=== PATIENT | female | born 1990 | race Two or more races ===

== ENCOUNTER 2017-01-19 00:22 | Inpatient (IN) | payer OTHER ==
[2017-01-19] VITALS: BP 113/56; PULSE 52; RESP 16; TEMP 97.3; O2SAT 98
[~2017-01-19] VITALS: Ht 165.1 cm; Wt 103.2 kg
[~2017-01-19 00:22] MED LIST: NALOXONE HCL 0.4 MG/ML AMP IV PUSH PRN; ONDANSETRON HCL 4 MG/2 ML VIAL IVP PRN; SODIUM CHLORIDE 0.9% FLUSH 10 ML FLUSH IV FLUSH PRN
[2017-01-19] MEDS: SODIUM CHLOR 0.9% 1000 ML INJ 1,000 ML IV SCH ×3 (00:55→18:14)
[2017-01-19] MEDS: MORPHINE SULFATE 2 MG/ML INJ IV PUSH PRN ×2 (01:15→07:25)
--- NOTE | 2017-01-19 02:14 | HHI.HP ---
[facility] Mukul Kyle D.O. Admission Diagnosis Diagnoses: Travel History International Travel<30 Days: No Contact w/Intl Traveler <30 Da: No Traveled to Known Affected Are: No History of Present Illness 27-year-old female presents to the emergency department with a 2 day history of severe epigastric abdominal pain that radiates to her shoulder and nausea/ vomiting. The patient reports she was in her usual state of health when 2 days ago she started to have right upper quadrant pain that was worse with inspiration. She reports the pain intensified to the point where she felt it necessary to be evaluated in the ED. The patient is also concerned because she has not been able to keep anything down. She reports throwing up everything that she takes nothing by mouth. She denies fever/chills. Patient's lab work was significant for transaminitis with elevated alkaline phosphatase and a total bilirubin of 2.8. She does not have leukocytosis. CT of the abdomen/ pelvis showed no acute disease. Review of Systems Denies fever or chills Denies blurry vision, otorrhea, rhinorrhea Denies sore throat and cough No chest pain, palpitations, shortness of breath Positive abdominal pain Positive nausea/vomiting Denies muscle pain/weakness No rashes Past Family Social History Past Medical History None Past Surgical History 5 weeks ago complicated by incisional infection, now resolved Reported Medications None Allergies: Coded Allergies: No Known Allergies (Verified Allergy, Unknown, 01/18/17) Family History Father with CAD. Mother healthy. Social History Occasional marijuana. Denies alcohol or other illicit drugs. Never smoker. Physical Exam Vital Signs Vital Signs Date Time Temp Pulse Resp B/P (MAP) Pulse Ox O2 Delivery O2 Flow Rate FiO2 01/19/17 00:00 97.3 52 16 113/56 (75) 98 Physical Exam GENERAL: female sitting up in bed SKIN: No rashes, ecchymoses or lesions. Cool and dry. HEAD: Atraumatic. Normocephalic. No temporal or scalp tenderness. EYES: Pupils equal round and reactive. Extraocular motions intact. No scleral icterus. No injection or drainage. ENT: Nose without bleeding, purulent drainage or septal hematoma. Throat without erythema, tonsillar hypertrophy or exudate. Uvula midline. Airway patent. NECK: Trachea midline. No JVD or lymphadenopathy. Supple, nontender, no meningeal signs. CARDIOVASCULAR: Regular rate and rhythm without murmurs, gallops, or rubs. RESPIRATORY: Clear to auscultation. Breath sounds equal bilaterally. No wheezes , rales, or rhonchi. GASTROINTESTINAL: Abdomen soft and nondistended. Exquisitely tender to palpation worse in the right upper quadrant. Unable to assess López sign secondary to pain. Pain referred to right shoulder. MUSCULOSKELETAL: Extremities without clubbing, cyanosis, or edema. No joint tenderness, effusion, or edema noted. NEUROLOGICAL: Awake and alert. Cranial nerves II through XII intact. Motor and sensory grossly within normal limits. Normal speech. Caprini VTE Risk Assessment Caprini VTE Risk Assessment: No/Low Risk (score <= 1) Caprini Risk Assessment Model Point Value = 1 Point Value = 2 Point Value = 3 Point Value = 5 Age 41-60 Minor surgery BMI > 25 kg/m2 Swollen legs Varicose veins or History of unexplained or recurrent spontaneous Oral contraceptives or hormone replacement Sepsis (< 1 month) Serious lung disease, including pneumonia (< 1 month) Abnormal pulmonary function Acute myocardial infarction Congestive heart failure (< 1 month) History of inflammatory bowel disease Medical patient at bed rest Age 61-74 Arthroscopic surgery Major open surgery (> 45 min) Laparoscopic surgery (> 45 min) Malignancy Confined to bed (> 72 hours) Immobilizing plaster cast Central venous access Age >= 75 History of VTE Family history of VTE Factor V Leiden Prothrombin [id number] Lupus anticoagulant Anticardiolipin antibodies Elevated serum homocysteine Heparin-induced thrombocytopenia Other congenital or acquired thrombophilia Stroke (< 1 month) Elective arthroplasty Hip, pelvis, or leg fracture Acute spinal cord injury (< 1 month) Prophylaxis Regimen Total Risk Factor Score Risk Level Prophylaxis Regimen 0-1 Low Early ambulation 2 Moderate Order ONE of the following: *Sequential Compression Device (SCD) *Heparin 5000 units SQ BID 3-4 Higher Order ONE of the following medications: *Heparin 5000 units SQ TID *Enoxaparin/Lovenox 40 mg SQ daily (WT < 150 kg, CrCl > 30 mL/min) *Enoxaparin/Lovenox 30 mg SQ daily (WT < 150 kg, CrCl > 10-29 mL/min) *Enoxaparin/Lovenox 30 mg SQ BID (WT < 150 kg, CrCl > 30 mL/min) AND/OR *Sequential Compression Device (SCD) 5 or more Highest Order ONE of the following medications: *Heparin 5000 units SQ TID (Preferred with Epidurals) *Enoxaparin/Lovenox 40 mg SQ daily (WT < 150 kg, CrCl > 30 mL/min) *Enoxaparin/Lovenox 30 mg SQ daily (WT < 150 kg, CrCl > 10-29 mL/min) *Enoxaparin/Lovenox 30 mg SQ BID (WT < 150 kg, CrCl > 30 mL/min) AND *Sequential Compression Device (SCD) Assessment and Plan Assessment and Plan 27-year-old female presents with 2 days of nausea/vomiting and abdominal pain with transaminitis and elevated total bilirubin. 1. Abdominal pain/transaminitis/elevated T bili/nausea and vomiting Given patient's lab values and right upper quadrant pain, concern for choledocholithiasis although no dilated ducts on CT abdomen/pelvis Ultrasound of the gallbladder pending Consult gastroenterology Nothing by mouth FEN NS at 100 cc/hour NPO Electrolytes within normal limits SCDs Physician Certification 2 Midnight Certification Type: Admission for Inpatient Services Order for Inpatient Services The services are ordered in accordance with Medicare regulations or non- Medicare payer requirements, as applicable. In the case of services not specified as inpatient-only, they are appropriately provided as inpatient services in accordance with the 2-midnight benchmark. Estimated LOS (days): 2 2 days is the estimated time the patient will need to remain in the hospital, assuming treatment plan goals are met and no additional complications. Post-Hospital Plan: Home Lety James MD Jan 19, 2017 02:14
[2017-01-19] MEDS ORDERED: PIPERACIL-TAZO 3.375 GM PREMIX 50 ML IV SCH (03:00)
[2017-01-19 08:00] VITALS: BP 114/66; PULSE 52; RESP 16; TEMP 97.6; O2SAT 97
[2017-01-19] MEDS ORDERED: BISACODYL 10 MG SUPP RECTAL PRN ×2 (08:45→11:45)
[2017-01-19] MEDS ORDERED: MORPHINE SULFATE 4 MG/ML INJ IV PUSH PRN ×2 (08:45)
[2017-01-19] MEDS ORDERED: oxyCODONE/ACETAMINOPHEN 10 MG/325 MG TAB PO PRN (08:45)
[2017-01-19] MEDS ORDERED: PROCHLORPERAZINE 25 MG SUPP RECTAL PRN (08:45)
[2017-01-19] MEDS ORDERED: LACTULOSE SYRUP 20 GM/30 ML CUP PO PRN ×2 (08:45→11:45)
[2017-01-19] MEDS ORDERED: oxyCODONE/ACETAMINOPHEN 5 MG/325 MG TAB PO PRN ×2 (08:45→11:45)
[2017-01-19] MEDS ORDERED: NALOXONE HCL 0.4 MG/ML AMP IV PUSH PRN ×2 (08:45→11:45)
[2017-01-19] MEDS ORDERED: MAGNESIUM HYDROXIDE SUSP 30 ML CUP PO PRN ×2 (08:45→11:45)
[2017-01-19] MEDS ORDERED: ACETAMINOPHEN 325 MG TAB PO PRN ×4 (08:45→11:45)
[2017-01-19] MEDS ORDERED: SENNOSIDES 8.6 MG TAB PO PRN ×2 (08:45→11:45)
[2017-01-19] MEDS ORDERED: SODIUM CHLORIDE 0.9% FLUSH 10 ML FLUSH IV FLUSH PRN ×2 (08:45→11:45)
[2017-01-19] MEDS ORDERED: DOCUSATE SODIUM 50 MG/SENNA 8.6 MG TAB PO SCH (09:00)
[2017-01-19] MEDS ORDERED: SODIUM CHLORIDE 0.9% FLUSH 10 ML FLUSH IV FLUSH SCH ×2 (09:00)
--- NOTE | 2017-01-19 10:21 | RADRPT ---
EXAM DATE/TIME: 01/19/2017 09:08 [facility] COMPARISON: CT ABDOMEN & PELVIS W/O CONTRAST, January 18, 2017, 20:41. INDICATIONS : Abdominal pain. MEDICAL HISTORY : Cholelithiasis. UTI. SURGICAL HISTORY : section. ENCOUNTER: Initial ACUITY: 1 day PAIN SCORE: 4/10 LOCATION: Abdomen. MEASUREMENTS: LIVER: 16.0 cm length COMMON DUCT: 8 mm RIGHT KIDNEY: 10.5 x 4.2 x 4.6 cm LEFT KIDNEY: 10.4 x 5.6 x 5.4 cm SPLEEN: 10.0 cm length AORTA: 1.3cm maximal FINDINGS: LIVER: Normal echotexture without focal lesion or ductal dilatation. COMMON DUCT: Measures 8 mm without obvious stone. GALLBLADDER: That are non-mobile echogenic focus in the gallbladder that could be stone. PANCREAS: The visualized portions are within normal limits. RIGHT KIDNEY: No hydronephrosis, stone or mass. LEFT KIDNEY: No hydronephrosis, stone or mass. SPLEEN: No focal lesion. AORTA: Non aneurysmal. IVC: Within normal limits. CONCLUSION: 8 mm common bile duct Probable gallstones. MRCP or HIDA scan may be of benefit. Kolton Marquez MD FACR on January 19, 2017 at 10:17 Board Certified Radiologist. This report was verified electronically.
[2017-01-19] MEDS: PIPERACIL-TAZO 4.5 GM PREMIX 100 ML IV SCH ×3 (11:21→21:20)
--- NOTE | 2017-01-19 11:36 | HHI.PR ---
Subjective Remarks 27-year-old female presents to the emergency department with a 2 day history of severe epigastric abdominal pain that radiates to her shoulder and nausea/ vomiting. The patient reports she was in her usual state of health when 2 days ago she started to have right upper quadrant pain that was worse with inspiration. She reports the pain intensified to the point where she felt it necessary to be evaluated in the ED. The patient is also concerned because she has not been able to keep anything down. She reports throwing up everything that she takes nothing by mouth. She denies fever/chills. Patient's lab work was significant for transaminitis with elevated alkaline phosphatase and a total bilirubin of 2.8. She does not have leukocytosis. CT of the abdomen/ pelvis showed no acute disease. 01-19 SEEN BY GI MRCP ORDERED DW PATIENT AND RN AND FAMILY RECENT WITH LOCAL WOUND INFECTION Objective Vitals Vital Signs Date Time Temp Pulse Resp B/P (MAP) Pulse Ox O2 Delivery O2 Flow Rate FiO2 01/19/17 08:00 97.6 52 16 114/66 (82) 97 01/19/17 00:00 97.3 52 16 113/56 (75) 98 I/O 01/18/17 01/18/17 01/18/17 01/19/17 01/19/17 01/19/17 07:00 15:00 23:00 07:00 15:00 23:00 Intake Total 1000 ml Balance 1000 ml Intake IV Total 1000 ml # Voids 1 Imaging Last Impressions Abdomen Ultrasound 01/19/17 0000 Signed Impressions: Service Date/Time: Thursday, January 19, 2017 09:08 - CONCLUSION: 8 mm common bile duct Probable gallstones. MRCP or HIDA scan may be of benefit. Kolton Marquez MD FACR Objective Remarks GENERAL: Awake alert oriented talkative and cooperative SKIN: Warm and dry. HEAD: Atraumatic. Normocephalic. EYES: Pupils equal and round. No scleral icterus. No injection or drainage. Extraocular muscles intact ENT: No nasal bleeding or discharge. Mucous membranes pink and moist. Tongue is midline NECK: Trachea midline. No JVD. Neck is supple CARDIOVASCULAR: Regular rate and rhythm. S1 and S2 no S3 or S4 no heave or thrill or rub or gallop RESPIRATORY: No accessory muscle use. Clear to auscultation. Breath sounds equal bilaterally. GASTROINTESTINAL: Abdomen soft, non-tender, nondistended. Hepatic and splenic margins not palpable. Obese MUSCULOSKELETAL: Extremities without clubbing, cyanosis, or edema. No obvious deformities. NEUROLOGICAL: Awake and alert. No obvious cranial nerve deficits. Motor grossly within normal limits. Five out of 5 muscle strength in the arms and legs. Normal speech. PSYCHIATRIC: Appropriate mood and affect; insight and judgment normal. Medications and IVs Current Medications Sodium Chloride 1,000 ml @ 100 mls/hr Q10H IV Last administered on 01/19/17 08:33; Start 01/18/17 at 22:14 Sodium Chloride (NS Flush) 2 ml UNSCH PRN IV FLUSH FLUSH AFTER USING IV ACCESS ; Start 01/18/17 at 22:15 Sodium Chloride (NS Flush) 2 ml BID IV FLUSH ; Start 01/19/17 at 09:00 Ondansetron HCl (Zofran Inj) 4 mg Q6H PRN IVP NAUSEA OR VOMITING; Start at 22:15 Naloxone HCl (Narcan Inj) 0.4 mg UNSCH PRN IV PUSH SEE LABEL COMMENTS; Start 01/18/17 at 22:15; Stop 01/19/17 at 08:41; Status DC Piperacillin Sod/ Tazobactam Sod 50 ml @ 100 mls/hr Q6H IV ; Start 01/19/17 at 03:00; Stop 01/19/17 at 03:00; Status DC Morphine Sulfate (Morphine Inj) 2 mg Q3H PRN IV PUSH pain > 4 Last administered on 01/19/17 07:25; Start 01/19/17 at 00:45; Stop 01/19/17 at 08:41 ; Status DC Piperacillin Sod/ Tazobactam Sod 100 ml @ 200 mls/hr Q6H IV Last administered on 01/19/17 11:21; Start 01/19/17 at 10:00 Sodium Chloride (NS Flush) 2 ml UNSCH PRN IV FLUSH FLUSH AFTER USING IV ACCESS ; Start 01/19/17 at 08:45; Stop 01/19/17 at 08:45; Status DC Sodium Chloride (NS Flush) 2 ml BID IV FLUSH ; Start 01/19/17 at 09:00; Stop at 09:00; Status DC Acetaminophen (Tylenol) 650 mg Q4H PRN PO TEMP > 100.4; Start 01/19/17 at 08:45 Prochlorperazine (Compazine Supp) 25 mg Q12H PRN RECTAL NAUSEA OR VOMITING; Start 01/19/17 at 08:45 Acetaminophen (Tylenol) 650 mg Q6H PRN PO PAIN SCALE 1 TO 2; Start 01/19/17 at 08:45 Oxycodone/ Acetaminophen (Percocet 5-325 Mg) 1 tab Q6H PRN PO PAIN SCALE 3 TO 5; Start 01/19/17 at 08:45 Oxycodone/ Acetaminophen (Percocet 10-325 Mg) 1 tab Q6H PRN PO PAIN SCALE 6 TO 10; Start 01/19/17 at 08:45 Morphine Sulfate (Morphine Inj) 2 mg Q3H PRN IV PUSH Pain 3-5; if unable to take PO; Start 01/19/17 at 08:45 Morphine Sulfate (Morphine Inj) 4 mg Q3H PRN IV PUSH Pain 6-10;if unable to take PO Last administered on 01/19/17t 10:52; Start 01/19/17 at 08:45 Naloxone HCl (Narcan Inj) 0.4 mg UNSCH PRN IV PUSH SEE LABEL COMMENTS; Start 01/19/17 at 08:45 Senna/Docusate Sodium (Vandana-Colace) 1 tab BID PO Last administered on 10:51; Start 01/19/17 at 09:00 Magnesium Hydroxide (Milk Of Magnesia Liq) 30 ml Q12H PRN PO Mild constipation ; Start 01/19/17 at 08:45 Sennosides (Senokot) 17.2 mg Q12H PRN PO Moderate constipation; Start 01/19/17 at 08:45 Bisacodyl (Dulcolax Supp) 10 mg DAILY PRN RECTAL SEVERE CONSITIPATION; Start 01/19/17 at 08:45 Lactulose (Lactulose Liq) 30 ml DAILY PRN PO SEVERE CONSITIPATION; Start at 08:45 Urinary Catheter: No Vascular Central Line Catheter: No A/P Assessment and Plan 27-year-old female presents with 2 days of nausea/vomiting and abdominal pain with transaminitis and elevated total bilirubin. 1. Abdominal pain/transaminitis/elevated T bili/nausea and vomiting Given patient's lab values and right upper quadrant pain, concern for choledocholithiasis although no dilated ducts on CT abdomen/pelvis Ultrasound of the gallbladder pending Consult gastroenterology Nothing by mouth FEN NS at 100 cc/hour NPO Electrolytes within normal limits SCDs Recent section 6 weeks ago with local wound infection resolved DW GI WILL GET MRCP TODAY MAY NEED ERCP A.m. labs Discussed with patient and RN and GI Discharge Planning Pending MRCP results and GI clearance Kolton Clemens DO Jan 19, 2017 11:36
[2017-01-19] MEDS ORDERED: MORPHINE SULFATE 2 MG/ML INJ IV PUSH PRN (11:45)
[2017-01-19 12:00] VITALS: BP 122/79; PULSE 48; RESP 18; TEMP 98; O2SAT 97
[2017-01-19 13:34] LABS: AUTOMATED NEUTROPHIL # 3.9 TH/MM3 (1.8-7.7); BASOPHIL % 0.2 % (0.0-2.0); EOSINOPHIL # 0.1 TH/MM3 (0-0.4); EOSINOPHIL % 1.2 % (0.0-4.0); HEMATOCRIT 35.9 % (35.0-46.0); HEMO FLAGS DIFF FINAL; LYMPH % 29.8 % (9.0-44.0); LYMPHOCYTE # 1.9 TH/MM3 (1.0-4.8); MEAN CORPUSCULAR HGB CONC 32.5 % (32.0-36.0); MONO % 8.2 % (0.0-8.0); NEUT % 60.6 % (16.0-70.0); PLATELET COUNT 271 TH/MM3 (150-450); RED BLOOD COUNT 4.33 MIL/MM3 (4.00-5.30); RED CELL DISTRIBUTION WIDTH 16.4 % (11.6-17.2); WHITE BLOOD COUNT 6.5 TH/MM3 (4.0-11.0)
[2017-01-19 13:54] LABS: MAGNESIUM 2.1 MG/DL (1.5-2.5)
[2017-01-19 13:56] LABS: ANION GAP 10 MEQ/L (5-15); AST (GOT) 158 U/L (15-37); BICARBONATE 23.9 MEQ/L (21.0-32.0); BLOOD UREA NITROGEN 9 MG/DL (7-18); CHLORIDE 107 MEQ/L (98-107); GLOMERULAR FILTRATION RATE 84 ML/MIN (>89); POTASSIUM 3.7 MEQ/L (3.5-5.1); SODIUM (NA) 141 MEQ/L (136-145)
[2017-01-19 14:00] LABS: ALKALINE PHOSPHATASE 258 U/L (45-117); ALT (GPT) 281 U/L (10-53); TOTAL BILIRUBIN ADULT 3.4 MG/DL (0.2-1.0)
[2017-01-19 14:03] LABS: FREE T4 1.21 NG/DL (0.76-1.46)
[2017-01-19 14:31] LABS: HEMOGLOBIN A1a 1.6 %; HEMOGLOBIN A1b 0.8 %; HEMOGLOBIN Ao 86.2 %; HEMOGLOBIN LA1C 1.6 %; HEMOGLOBIN P3 3.1 %
[2017-01-19] MEDS: MORPHINE SULFATE 4 MG/ML INJ IV PUSH PRN ×3 (14:48→21:26)
[2017-01-19] MEDS: ONDANSETRON HCL 4 MG/2 ML VIAL IVP PRN ×2 (15:18→21:19)
--- NOTE | 2017-01-19 15:18 | RADRPT ---
EXAM DATE/TIME: 01/19/2017 13:37 [facility] COMPARISON: No previous studies available for comparison. INDICATIONS : Abdominal pain. MEDICAL HISTORY : None. SURGICAL HISTORY : section. ENCOUNTER: Initial ACUITY: 3 day PAIN SCORE: 4/10 LOCATION: Abdomen TECHNIQUE: Multiplanar, multisequence magnetic resonance imaging of the abdomen was performed. High-resolution 3D dataset was utilized to reconstruct maximum-intensity projection (MIP) images. FINDINGS: There are 3 tiny stones in the benign appearing gallbladder. The common duct appears normal on the M [employer]. Pancreatic duct is normal. The liver and spleen are unremarkable. The pancreas appears unremarkable. CONCLUSION: Tiny stones in the benign appearing gallbladder. Normal common duct. Given the size of the stones w e could be missing a tiny common duct stone on this exam. Kolton Marquez MD FACR on January 19, 2017 at 15:14 Board Certified Radiologist. This report was verified electronically.
[2017-01-19 16:00] VITALS: BP 118/76; PULSE 46; RESP 16; TEMP 98; O2SAT 97
--- NOTE | 2017-01-19 16:16 | PD.CONS ---
HPI History of Present Illness This is a 27 year old who recently delivered by 6 weeks ago. She has lost 28 lbs since that time. She is not and there is no chance of . For the past 4-5 weeks, she has been having a constant sharp discomfort in her right shoulder blade area. 2 days ago, this became more severe and radiated to her right upper quadrant. The pain was more intense in her right upper quadrant. Since this time, every time she tries to eat or drink anything, she will vomit undigested food. She denies any associated fevers, chills. She is not having any diarrhea. She denies any relation to any particular type of food and states that the nausea/vomiting only began in the past 2 days. Around the same time, she started having dark urine. US (01/19/17) ---> 8 mm common bile duct. Probable gallstones. MRCP or HIDA scan may be of benefit. MRCP (01/19/17)---> Tiny stones in the benign appearing gallbladder. Normal common duct. Given the size of the stones, we could be missing a tiny common duct stone on this exam. Clinically, she reports that she is still having the same right upper quadrant pain. (Nilam Diego) PFSH Past Medical History None Past Surgical History (Nilam Diego) Coded Allergies: No Known Allergies (Verified Allergy, Unknown, 01/18/17) Medications Allergies Coded Allergies Type Severity Reaction Last Updated Verified No Known Allergies Allergy Unknown 01/18/17 Yes Family History Father with CAD. Mother healthy. Social History Occasional marijuana. Denies alcohol or other illicit drugs. Never smoker. (Nilam Diego) Review of Systems Constitutional: COMPLAINS OF: Fatigue, Weight loss, DENIES: Fever, Chills Gastrointestinal: COMPLAINS OF: Abdominal pain, Nausea, Vomiting, DENIES: Diarrhea Musculoskeletal: COMPLAINS OF: Back pain ROS dark urine (Nilam Diego) GI Exam Vitals I&O Vital Signs Date Time Temp Pulse Resp B/P (MAP) Pulse Ox O2 Delivery O2 Flow Rate FiO2 01/19/17 12:00 98.0 48 18 122/79 (93) 97 01/19/17 08:00 97.6 52 16 114/66 (82) 97 01/19/17 00:00 97.3 52 16 113/56 (75) 98 I/O 01/18/17 01/18/17 01/18/17 01/19/17 01/19/17 01/19/17 07:00 15:00 23:00 07:00 15:00 23:00 Intake Total 1000 ml Balance 1000 ml Intake IV Total 1000 ml # Voids 1 Imaging Last Impressions Cholangiopancreatography MRI 01/19/17 0000 Signed Impressions: Service Date/Time: Thursday, January 19, 2017 13:37 - CONCLUSION: Tiny stones in the benign appearing gallbladder. Normal common duct. Given the size of the stones we could be missing a tiny common duct stone on this exam. Kolton Marquez MD FACR Abdomen Ultrasound 01/19/17 0000 Signed Impressions: Service Date/Time: Thursday, January 19, 2017 09:08 - CONCLUSION: 8 mm common bile duct Probable gallstones. MRCP or HIDA scan may be of benefit. Kolton Marquez MD FACR Laboratory Test 01/19/17 12:51 01/19/17 12:57 White Blood Count 6.5 TH/MM3 Red Blood Count 4.33 MIL/MM3 Hemoglobin 11.7 GM/DL Hematocrit 35.9 % Mean Corpuscular Volume 83.0 FL Mean Corpuscular Hemoglobin 27.0 PG Mean Corpuscular Hemoglobin Concent 32.5 % Red Cell Distribution Width 16.4 % Platelet Count 271 TH/MM3 Mean Platelet Volume 7.9 FL Neutrophils (%) (Auto) 60.6 % Lymphocytes (%) (Auto) 29.8 % Monocytes (%) (Auto) 8.2 % Eosinophils (%) (Auto) 1.2 % Basophils (%) (Auto) 0.2 % Neutrophils # (Auto) 3.9 TH/MM3 Lymphocytes # (Auto) 1.9 TH/MM3 Monocytes # (Auto) 0.5 TH/MM3 Eosinophils # (Auto) 0.1 TH/MM3 Basophils # (Auto) 0.0 TH/MM3 CBC Comment DIFF FINAL Differential Comment Blood Urea Nitrogen 9 MG/DL Creatinine 0.82 MG/DL Random Glucose 64 MG/DL Total Protein 6.7 GM/DL Albumin 2.8 GM/DL Calcium Level 8.4 MG/DL Alkaline Phosphatase 258 U/L Aspartate Amino Transf (AST/SGOT) 158 U/L Alanine Aminotransferase (ALT/SGPT) 281 U/L Total Bilirubin 3.4 MG/DL Sodium Level 141 MEQ/L Potassium Level 3.7 MEQ/L Chloride Level 107 MEQ/L Carbon Dioxide Level 23.9 MEQ/L Anion Gap 10 MEQ/L Estimat Glomerular Filtration Rate 84 ML/MIN Hemoglobin A1c 5.3 % Phosphorus Level 2.9 MG/DL Magnesium Level 2.1 MG/DL Free Thyroxine 1.21 NG/DL Thyroid Stimulating Hormone 3rd Gen 1.130 uIU/ML Physical Examination HEENT: Normocephalic; atraumatic; no jaundice. CHEST: CTA CARDIAC: RRR ABDOMEN: Soft, nondistended, RUQ tenderness; no hepatosplenomegaly; bowel sounds are present in all four quadrants. EXTREMITIES: No clubbing, cyanosis, or edema. SKIN: Normal; no rash; no jaundice. [employer]: No focal deficits; alert and oriented times three. (Nilam Diego) Assessment and Plan Plan ASSESSMENT: - RUQ pain, cholelithiasis, elevated lfts. US (01/19/17)---> 8 mm common bile duct. Probable gallstones. MRCP or HIDA scan may be of benefit. MRCP (01/19/17)---> Tiny stones in the benign appearing gallbladder. Normal common duct. Given the size of the stones, we could be missing a tiny common duct stone on this exam. Clinically, she reports that she is still having the same right upper quadrant pain. T. Bili 3.4, AST 158, ALT 281, Alk Phosph 258. Clinically, still having abdominal pain. Will keep NPO. Recheck LFTs in am. If no improvement, may still need ERCP. Check lipase. - Elevated LFTs, obstructive pattern. MRCP as above. Will recheck in am. PLAN: - NPO - IVF - Add PPI - Lipase level - CBC, LFT in am - Supportive care - Further recommendations to follow based on results of above - PT seen and examined by Dr. Hooks and myself and this note is written on his behalf (Nilam Diego) Physician Comments Seen and examined, plan as above. Normal CBD diameter in MRCP and non of the studies confirming CBD stones, will follow up clinically . Daily LFT's and Amylase/Lipase Further recommendations to follow. (Eloy Hooks MD) Nilam Diego Jan 19, 2017 16:16 Eloy Hooks MD Jan 19, 2017 16:36
[2017-01-19] MEDS: PANTOPRAZOLE SODIUM 40 MG VIAL IV PUSH SCH (16:48)
[2017-01-19] MEDS: PROCHLORPERAZINE 25 MG SUPP RECTAL PRN (19:23)
[2017-01-19] MEDS: SODIUM CHLORIDE 0.9% FLUSH 10 ML FLUSH IV FLUSH SCH (19:27)
[2017-01-19 20:00] VITALS: BP 129/64; PULSE 49; RESP 20; TEMP 97.5; O2SAT 98
[2017-01-19] MEDS: DOCUSATE SODIUM 50 MG/SENNA 8.6 MG TAB PO SCH (21:00)
[2017-01-20] VITALS: BP 132/82; PULSE 52; RESP 18; TEMP 97.9; O2SAT 97
[2017-01-20] MEDS: SODIUM CHLOR 0.9% 1000 ML INJ 1,000 ML IV SCH (04:14)
[2017-01-20] MEDS: ONDANSETRON HCL 4 MG/2 ML VIAL IVP PRN (04:38)
[2017-01-20] MEDS: PIPERACIL-TAZO 4.5 GM PREMIX 100 ML IV SCH ×4 (04:38→21:38)
[2017-01-20] MEDS: MORPHINE SULFATE 4 MG/ML INJ IV PUSH PRN (04:38)
[2017-01-20 08:00] VITALS: BP 116/65; PULSE 64; RESP 16; TEMP 97; O2SAT 97
[2017-01-20 08:59] LABS: BASOPHIL % 0.2 % (0.0-2.0); EOSINOPHIL # 0.1 TH/MM3 (0-0.4); EOSINOPHIL % 1.3 % (0.0-4.0); HEMO FLAGS DIFF FINAL; LYMPH % 25.3 % (9.0-44.0); LYMPHOCYTE # 1.9 TH/MM3 (1.0-4.8); MEAN CELL VOLUME 83.2 FL (80.0-100.0); MEAN CORPUSCULAR HEMOGLOBIN 26.6 PG (27.0-34.0); MONO % 5.9 % (0.0-8.0); NEUT % 67.3 % (16.0-70.0); PLATELET COUNT 260 TH/MM3 (150-450); RED BLOOD COUNT 4.45 MIL/MM3 (4.00-5.30); RED CELL DISTRIBUTION WIDTH 16.7 % (11.6-17.2); WHITE BLOOD COUNT 7.5 TH/MM3 (4.0-11.0)
[2017-01-20] MEDS: SODIUM CHLORIDE 0.9% FLUSH 10 ML FLUSH IV FLUSH SCH ×2 (09:00→20:01)
[2017-01-20] MEDS: DOCUSATE SODIUM 50 MG/SENNA 8.6 MG TAB PO SCH ×2 (09:25→20:00)
[2017-01-20 09:27] LABS: AMYLASE 98 U/L (25-115); ANION GAP 11 MEQ/L (5-15); AST (GOT) 63 U/L (15-37); BICARBONATE 22.7 MEQ/L (21.0-32.0); BLOOD UREA NITROGEN 12 MG/DL (7-18); CHLORIDE 108 MEQ/L (98-107); GLOMERULAR FILTRATION RATE 80 ML/MIN (>89); POTASSIUM 4.1 MEQ/L (3.5-5.1); SODIUM (NA) 142 MEQ/L (136-145)
[2017-01-20 09:28] LABS: ALT (GPT) 208 U/L (10-53)
[2017-01-20 09:31] LABS: ALKALINE PHOSPHATASE 254 U/L (45-117); FREE T4 1.28 NG/DL (0.76-1.46); TOTAL BILIRUBIN ADULT 3.7 MG/DL (0.2-1.0)
[2017-01-20] MEDS: D5-1/2 NS + KCL 20 MEQ INJ 1,000 ML IV SCH (10:08)
[2017-01-20 12:00] VITALS: BP 108/57; PULSE 45; RESP 16; TEMP 97.6; O2SAT 98
--- NOTE | 2017-01-20 12:25 | HHI.PR ---
Subjective Remarks 27-year-old female presents to the emergency department with a 2 day history of severe epigastric abdominal pain that radiates to her shoulder and nausea/ vomiting. The patient reports she was in her usual state of health when 2 days ago she started to have right upper quadrant pain that was worse with inspiration. She reports the pain intensified to the point where she felt it necessary to be evaluated in the ED. The patient is also concerned because she has not been able to keep anything down. She reports throwing up everything that she takes nothing by mouth. She denies fever/chills. Patient's lab work was significant for transaminitis with elevated alkaline phosphatase and a total bilirubin of 2.8. She does not have leukocytosis. CT of the abdomen/ pelvis showed no acute disease. 01-19 SEEN BY GI MRCP ORDERED DW PATIENT AND RN AND FAMILY RECENT WITH LOCAL WOUND INFECTION 01-20 STILL HAVING ABDOMINAL PAIN LFTS ARE TRENDING DOWN DW RN AND PT AND CM AM LABS CLEAR LIQUIDS IF OK WITH GI Objective Vitals Vital Signs Date Time Temp Pulse Resp B/P (MAP) Pulse Ox O2 Delivery O2 Flow Rate FiO2 01/20/17 12:00 97.6 45 16 108/57 (74) 98 01/20/17 08:00 97.0 64 16 116/65 (82) 97 01/20/17 04:43 20 01/20/17 00:00 97.9 52 18 132/82 (99) 97 01/19/17 20:00 97.5 49 20 129/64 (85) 98 01/19/17 16:00 98.0 46 16 118/76 (90) 97 I/O 01/19/17 01/19/17 01/19/17 01/20/17 01/20/17 01/20/17 07:00 15:00 23:00 07:00 15:00 23:00 Intake Total 1000 ml 100 ml 0 ml 487 ml Balance 1000 ml 100 ml 0 ml 487 ml Intake Oral 0 ml 0 ml IV Total 1000 ml 100 ml 487 ml # Voids 1 4 2 # Bowel Movements 0 0 Result Diagram: 01/20/17 0808 01/20/17 0808 Other Results Laboratory Tests Test 01/19/17 12:51 01/19/17 12:57 01/20/17 08:08 White Blood Count 6.5 TH/MM3 7.5 TH/MM3 Red Blood Count 4.33 MIL/MM3 4.45 MIL/MM3 Hemoglobin 11.7 GM/DL 11.8 GM/DL Hematocrit 35.9 % 37.0 % Mean Corpuscular Volume 83.0 FL 83.2 FL Mean Corpuscular Hemoglobin 27.0 PG 26.6 PG Mean Corpuscular Hemoglobin Concent 32.5 % 32.0 % Red Cell Distribution Width 16.4 % 16.7 % Platelet Count 271 TH/MM3 260 TH/MM3 Mean Platelet Volume 7.9 FL 8.0 FL Neutrophils (%) (Auto) 60.6 % 67.3 % Lymphocytes (%) (Auto) 29.8 % 25.3 % Monocytes (%) (Auto) 8.2 % 5.9 % Eosinophils (%) (Auto) 1.2 % 1.3 % Basophils (%) (Auto) 0.2 % 0.2 % Neutrophils # (Auto) 3.9 TH/MM3 5.0 TH/MM3 Lymphocytes # (Auto) 1.9 TH/MM3 1.9 TH/MM3 Monocytes # (Auto) 0.5 TH/MM3 0.4 TH/MM3 Eosinophils # (Auto) 0.1 TH/MM3 0.1 TH/MM3 Basophils # (Auto) 0.0 TH/MM3 0.0 TH/MM3 CBC Comment DIFF FINAL DIFF FINAL Differential Comment Blood Urea Nitrogen 9 MG/DL 12 MG/DL Creatinine 0.82 MG/DL 0.86 MG/DL Random Glucose 64 MG/DL 54 MG/DL Total Protein 6.7 GM/DL 6.7 GM/DL Albumin 2.8 GM/DL 2.8 GM/DL Calcium Level 8.4 MG/DL 8.5 MG/DL Alkaline Phosphatase 258 U/L 254 U/L Aspartate Amino Transf (AST/SGOT) 158 U/L 63 U/L Alanine Aminotransferase (ALT/SGPT) 281 U/L 208 U/L Total Bilirubin 3.4 MG/DL 3.7 MG/DL Sodium Level 141 MEQ/L 142 MEQ/L Potassium Level 3.7 MEQ/L 4.1 MEQ/L Chloride Level 107 MEQ/L 108 MEQ/L Carbon Dioxide Level 23.9 MEQ/L 22.7 MEQ/L Anion Gap 10 MEQ/L 11 MEQ/L Estimat Glomerular Filtration Rate 84 ML/MIN 80 ML/MIN Hemoglobin A1c 5.3 % Phosphorus Level 2.9 MG/DL 3.3 MG/DL Magnesium Level 2.1 MG/DL 2.0 MG/DL Lipase 215 U/L 405 U/L Free Thyroxine 1.21 NG/DL 1.28 NG/DL Thyroid Stimulating Hormone 3rd Gen 1.130 uIU/ML Amylase Level 98 U/L Imaging Last Impressions Cholangiopancreatography MRI 01/19/17 0000 Signed Impressions: Service Date/Time: Thursday, January 19, 2017 13:37 - CONCLUSION: Tiny stones in the benign appearing gallbladder. Normal common duct. Given the size of the stones we could be missing a tiny common duct stone on this exam. Kolton Marquez MD FACR Abdomen Ultrasound 01/19/17 0000 Signed Impressions: Service Date/Time: Thursday, January 19, 2017 09:08 - CONCLUSION: 8 mm common bile duct Probable gallstones. MRCP or HIDA scan may be of benefit. Kolton Marquez MD FACR Objective Remarks GENERAL: Awake alert oriented talkative and cooperative SKIN: Warm and dry. HEAD: Atraumatic. Normocephalic. EYES: Pupils equal and round. No scleral icterus. No injection or drainage. Extraocular muscles intact ENT: No nasal bleeding or discharge. Mucous membranes pink and moist. Tongue is midline NECK: Trachea midline. No JVD. Neck is supple CARDIOVASCULAR: Regular rate and rhythm. S1 and S2 no S3 or S4 no heave or thrill or rub or gallop RESPIRATORY: No accessory muscle use. Clear to auscultation. Breath sounds equal bilaterally. GASTROINTESTINAL: Abdomen soft, non-tender, nondistended. Hepatic and splenic margins not palpable. Obese MUSCULOSKELETAL: Extremities without clubbing, cyanosis, or edema. No obvious deformities. NEUROLOGICAL: Awake and alert. No obvious cranial nerve deficits. Motor grossly within normal limits. Five out of 5 muscle strength in the arms and legs. Normal speech. PSYCHIATRIC: Appropriate mood and affect; insight and judgment normal. Medications and IVs Current Medications Sodium Chloride 1,000 ml @ 100 mls/hr Q10H IV Last administered on 01/20/17t 04:14; Start 01/18/17 at 22:14; Stop 01/20/17 at 09:53; Status DC Sodium Chloride (NS Flush) 2 ml UNSCH PRN IV FLUSH FLUSH AFTER USING IV ACCESS ; Start 01/18/17 at 22:15; Stop 01/19/17 at 12:00; Status DC Sodium Chloride (NS Flush) 2 ml BID IV FLUSH ; Start 01/19/17 at 09:00; Stop at 12:00; Status DC Ondansetron HCl (Zofran Inj) 4 mg Q6H PRN IVP NAUSEA OR VOMITING; Start at 22:15; Stop 01/19/17 at 12:00; Status DC Naloxone HCl (Narcan Inj) 0.4 mg UNSCH PRN IV PUSH SEE LABEL COMMENTS; Start 01/18/17 at 22:15; Stop 01/19/17 at 08:41; Status DC Piperacillin Sod/ Tazobactam Sod 50 ml @ 100 mls/hr Q6H IV ; Start 01/19/17 at 03:00; Stop 01/19/17 at 03:00; Status DC Morphine Sulfate (Morphine Inj) 2 mg Q3H PRN IV PUSH pain > 4 Last administered on 01/19/17 07:25; Start 01/19/17 at 00:45; Stop 01/19/17 at 08:41 ; Status DC Piperacillin Sod/ Tazobactam Sod 100 ml @ 200 mls/hr Q6H IV Last administered on 01/20/17t 10:08; Start 01/19/17 at 10:00 Sodium Chloride (NS Flush) 2 ml UNSCH PRN IV FLUSH FLUSH AFTER USING IV ACCESS ; Start 01/19/17 at 08:45; Stop 01/19/17 at 08:45; Status DC Sodium Chloride (NS Flush) 2 ml BID IV FLUSH ; Start 01/19/17 at 09:00; Stop at 09:00; Status DC Acetaminophen (Tylenol) 650 mg Q4H PRN PO TEMP > 100.4; Start 01/19/17 at 08:45 ; Stop 01/19/17 at 12:00; Status DC Prochlorperazine (Compazine Supp) 25 mg Q12H PRN RECTAL NAUSEA OR VOMITING; Start 01/19/17 at 08:45; Stop 01/19/17 at 12:00; Status DC Acetaminophen (Tylenol) 650 mg Q6H PRN PO PAIN SCALE 1 TO 2; Start 01/19/17 at 08:45; Stop 01/19/17 at 12:00; Status DC Oxycodone/ Acetaminophen (Percocet 5-325 Mg) 1 tab Q6H PRN PO PAIN SCALE 3 TO 5; Start 01/19/17 at 08:45; Stop 01/19/17 at 12:00; Status DC Oxycodone/ Acetaminophen (Percocet 10-325 Mg) 1 tab Q6H PRN PO PAIN SCALE 6 TO 10; Start 01/19/17 at 08:45; Stop 01/19/17 at 12:00; Status DC Morphine Sulfate (Morphine Inj) 2 mg Q3H PRN IV PUSH Pain 3-5; if unable to take PO; Start 01/19/17 at 08:45; Stop 01/19/17 at 12:06; Status DC Morphine Sulfate (Morphine Inj) 4 mg Q3H PRN IV PUSH Pain 6-10;if unable to take PO Last administered on 01/19/17 10:52; Start 01/19/17 at 08:45; Stop 01/19/17 at 12:06; Status DC Naloxone HCl (Narcan Inj) 0.4 mg UNSCH PRN IV PUSH SEE LABEL COMMENTS; Start 01/19/17 at 08:45; Stop 01/19/17 at 12:06; Status DC Senna/Docusate Sodium (Vandana-Colace) 1 tab BID PO Last administered on 10:51; Start 01/19/17 at 09:00; Stop 01/19/17 at 12:08; Status DC Magnesium Hydroxide (Milk Of Magnesia Liq) 30 ml Q12H PRN PO Mild constipation ; Start 01/19/17 at 08:45; Stop 01/19/17 at 12:06; Status DC Sennosides (Senokot) 17.2 mg Q12H PRN PO Moderate constipation; Start 01/19/17 at 08:45; Stop 01/19/17 at 12:08; Status DC Bisacodyl (Dulcolax Supp) 10 mg DAILY PRN RECTAL SEVERE CONSITIPATION; Start 01/19/17 at 08:45; Stop 01/19/17 at 12:06; Status DC Lactulose (Lactulose Liq) 30 ml DAILY PRN PO SEVERE CONSITIPATION; Start at 08:45; Stop 01/19/17 at 12:06; Status DC Sodium Chloride (NS Flush) 2 ml UNSCH PRN IV FLUSH FLUSH AFTER USING IV ACCESS ; Start 01/19/17 at 11:45 Sodium Chloride (NS Flush) 2 ml BID IV FLUSH ; Start 01/19/17 at 21:00 Acetaminophen (Tylenol) 650 mg Q4H PRN PO TEMP > 100.4; Start 01/19/17 at 11:45 Ondansetron HCl (Zofran Inj) 4 mg Q6H PRN IVP NAUSEA OR VOMITING Last administered on 01/20/17 04:38; Start 01/19/17 at 11:45 Prochlorperazine (Compazine Supp) 25 mg Q12H PRN RECTAL NAUSEA OR VOMITING Last administered on 01/19/17 19:23; Start 01/19/17 at 11:45 Acetaminophen (Tylenol) 650 mg Q6H PRN PO PAIN SCALE 1 TO 2; Start 01/19/17 at 11:45 Oxycodone/ Acetaminophen (Percocet 5-325 Mg) 1 tab Q6H PRN PO PAIN SCALE 3 TO 5; Start 01/19/17 at 11:45 Oxycodone/ Acetaminophen (Percocet 10-325 Mg) 1 tab Q6H PRN PO PAIN SCALE 6 TO 10; Start 01/19/17 at 11:45 Morphine Sulfate (Morphine Inj) 2 mg Q3H PRN IV PUSH Pain 3-5; if unable to take PO; Start 01/19/17 at 11:45 Morphine Sulfate (Morphine Inj) 4 mg Q3H PRN IV PUSH Pain 6-10;if unable to take PO Last administered on 01/20/17 04:38; Start 01/19/17 at 11:45 Naloxone HCl (Narcan Inj) 0.4 mg UNSCH PRN IV PUSH SEE LABEL COMMENTS; Start 01/19/17 at 11:45 Senna/Docusate Sodium (Vandana-Colace) 1 tab BID PO Last administered on 09:25; Start 01/19/17 at 21:00 Magnesium Hydroxide (Milk Of Magnesia Liq) 30 ml Q12H PRN PO Mild constipation ; Start 01/19/17 at 11:45 Sennosides (Senokot) 17.2 mg Q12H PRN PO Moderate constipation; Start 01/19/17 at 11:45 Bisacodyl (Dulcolax Supp) 10 mg DAILY PRN RECTAL SEVERE CONSITIPATION; Start 01/19/17 at 11:45 Lactulose (Lactulose Liq) 30 ml DAILY PRN PO SEVERE CONSITIPATION; Start at 11:45 Pantoprazole Sodium (Protonix Inj) 40 mg Q24H IV PUSH Last administered on 01/19 16:48; Start 01/19/17 at 17:00 Potassium Chloride/Dextrose/ Sod Cl 1,000 ml @ 75 mls/hr [id number] IV Last administered on 01/20/17 10:08; Start 01/20/17 at 10:52 Urinary Catheter: No Vascular Central Line Catheter: No A/P Assessment and Plan 27-year-old female presents with 2 days of nausea/vomiting and abdominal pain with transaminitis and elevated total bilirubin. 1. Abdominal pain/transaminitis/elevated T bili/nausea and vomiting Given patient's lab values and right upper quadrant pain, concern for choledocholithiasis although no dilated ducts on CT abdomen/pelvis Ultrasound of the gallbladder pending Consult gastroenterology Nothing by mouth FEN NS at 100 cc/hour NPO Electrolytes within normal limits SCDs Recent section 6 weeks ago with local wound infection resolved DW GI WILL GET MRCP TODAY- HAS BEEN DONE- RESULTS REVIEWED PANCREATITIS WITH ELEVATED LIPASE STILL HAVING ABDOMINAL PAIN A.m. labs Discussed with patient and RN and GI AND CM Discharge Planning HAD MRCP and GI clearance STILL HAVING ABDOMINAL PAIN Kolton Clemens DO Jan 20, 2017 12:25
--- NOTE | 2017-01-20 15:55 | HHI.GIFU ---
Subjective Remarks Resting in bed. No longer having the RUQ pain, but continues to have the left scapula pain. No n/v. Requesting diet. (Nilam Diego) Objective Vitals I&O Vital Signs Date Time Temp Pulse Resp B/P (MAP) Pulse Ox O2 Delivery O2 Flow Rate FiO2 01/20/17 12:00 97.6 45 16 108/57 (74) 98 01/20/17 08:00 97.0 64 16 116/65 (82) 97 01/20/17 04:43 20 01/20/17 00:00 97.9 52 18 132/82 (99) 97 01/19/17 20:00 97.5 49 20 129/64 (85) 98 01/19/17 16:00 98.0 46 16 118/76 (90) 97 I/O 01/19/17 01/19/17 01/19/17 01/20/17 01/20/17 01/20/17 07:00 15:00 23:00 07:00 15:00 23:00 Intake Total 1000 ml 100 ml 0 ml 487 ml Balance 1000 ml 100 ml 0 ml 487 ml Intake Oral 0 ml 0 ml IV Total 1000 ml 100 ml 487 ml # Voids 1 4 2 # Bowel Movements 0 0 Laboratory Laboratory Tests Test 01/20/17 08:08 White Blood Count 7.5 Red Blood Count 4.45 Hemoglobin 11.8 Hematocrit 37.0 Mean Corpuscular Volume 83.2 Mean Corpuscular Hemoglobin 26.6 Mean Corpuscular Hemoglobin Concent 32.0 Red Cell Distribution Width 16.7 Platelet Count 260 Mean Platelet Volume 8.0 Neutrophils (%) (Auto) 67.3 Lymphocytes (%) (Auto) 25.3 Monocytes (%) (Auto) 5.9 Eosinophils (%) (Auto) 1.3 Basophils (%) (Auto) 0.2 Neutrophils # (Auto) 5.0 Lymphocytes # (Auto) 1.9 Monocytes # (Auto) 0.4 Eosinophils # (Auto) 0.1 Basophils # (Auto) 0.0 CBC Comment DIFF FINAL Differential Comment Blood Urea Nitrogen 12 Creatinine 0.86 Random Glucose 54 Total Protein 6.7 Albumin 2.8 Calcium Level 8.5 Phosphorus Level 3.3 Magnesium Level 2.0 Alkaline Phosphatase 254 Aspartate Amino Transf (AST/SGOT) 63 Alanine Aminotransferase (ALT/SGPT) 208 Total Bilirubin 3.7 Sodium Level 142 Potassium Level 4.1 Chloride Level 108 Carbon Dioxide Level 22.7 Anion Gap 11 Estimat Glomerular Filtration Rate 80 Amylase Level 98 Lipase 405 Free Thyroxine 1.28 Imaging Last Impressions Cholangiopancreatography MRI 01/19/17 0000 Signed Impressions: Service Date/Time: Thursday, January 19, 2017 13:37 - CONCLUSION: Tiny stones in the benign appearing gallbladder. Normal common duct. Given the size of the stones we could be missing a tiny common duct stone on this exam. Kolton Marquez MD FACR Abdomen Ultrasound 01/19/17 0000 Signed Impressions: Service Date/Time: Thursday, January 19, 2017 09:08 - CONCLUSION: 8 mm common bile duct Probable gallstones. MRCP or HIDA scan may be of benefit. Kolton Marquez MD FACR Physical Exam HEENT: Normocephalic; atraumatic; no jaundice. CHEST: Resp even/unlabored. CARDIAC: RRR ABDOMEN: Soft, nondistended, nontender; no hepatosplenomegaly; bowel sounds are present in all four quadrants. EXTREMITIES: No clubbing, cyanosis, or edema. SKIN: Normal; no rash; no jaundice. DRIVING TEACHER: No focal deficits; alert and oriented times three. (Nilam Diego [facility]) Assessment and Plan Plan ASSESSMENT: - RUQ pain, cholelithiasis, elevated lfts. US (01/19/17)---> 8 mm common bile duct. Probable gallstones. MRCP or HIDA scan may be of benefit. MRCP (01/19/17)---> Tiny stones in the benign appearing gallbladder. Normal common duct. Given the size of the stones, we could be missing a tiny common duct stone on this exam. No longer having the RUQ pain. Continues to aching pain in right scapula. T. Bili 3.7, AST 63, ALT 208, Alk Phosph 254. Lipase went up to 405. NPO. Requesting diet. - Elevated LFTs, obstructive pattern. MRCP as above. - Elevated Lipase. PLAN: - Clear liquids - IVF - PPI - Hepatitis profile pending. - LFT, Lipase level in am - Supportive care - Further recommendations to follow based on results of above - PT seen and examined by Dr. Hooks and myself and this note is written on his behalf (Nilam Diego) Physician Comments Agree with plan as above, will monitor LFT's . check hepatis profile. (Eloy Hooks MD) Nilam Diego Jan 20, 2017 15:55 Eloy Hooks MD Jan 20, 2017 18:36
[2017-01-20 16:00] VITALS: BP 113/68; PULSE 66; RESP 16; TEMP 97.7; O2SAT 98
[2017-01-20] MEDS: PANTOPRAZOLE SODIUM 40 MG VIAL IV PUSH SCH (16:38)
[2017-01-20 16:40] LABS: HEMOGLOBIN A1a 1.1 %; HEMOGLOBIN A1b 0.8 %; HEMOGLOBIN Ao 86.7 %; HEMOGLOBIN F 0.9 %; HEMOGLOBIN LA1C 1.5 %; HEMOGLOBIN P3 3.2 %
[2017-01-20] MEDS: oxyCODONE/ACETAMINOPHEN 10 MG/325 MG TAB PO PRN (17:55)
[2017-01-20 20:00] VITALS: BP 131/60; PULSE 49; RESP 18; TEMP 97.8; O2SAT 98
[2017-01-21 00:40] VITALS: BP 122/59; PULSE 49; RESP 18; TEMP 97.5; O2SAT 99
[2017-01-21] MEDS: D5-1/2 NS + KCL 20 MEQ INJ 1,000 ML IV SCH ×2 (02:17→18:20)
[2017-01-21] MEDS: PIPERACIL-TAZO 4.5 GM PREMIX 100 ML IV SCH ×4 (05:09→19:35)
[2017-01-21 08:00] VITALS: BP 121/80; PULSE 46; RESP 16; TEMP 97.7; O2SAT 98
[2017-01-21] MEDS: SODIUM CHLORIDE 0.9% FLUSH 10 ML FLUSH IV FLUSH SCH ×2 (09:00→19:37)
[2017-01-21 09:15] LABS: AUTOMATED NEUTROPHIL # 4.4 TH/MM3 (1.8-7.7); BASOPHIL % 0.3 % (0.0-2.0); EOSINOPHIL # 0.1 TH/MM3 (0-0.4); EOSINOPHIL % 1.4 % (0.0-4.0); HEMATOCRIT 35.5 % (35.0-46.0); HEMO FLAGS DIFF FINAL; LYMPH % 23.8 % (9.0-44.0); LYMPHOCYTE # 1.6 TH/MM3 (1.0-4.8); MEAN CELL VOLUME 82.5 FL (80.0-100.0); MEAN CORPUSCULAR HEMOGLOBIN 27.5 PG (27.0-34.0); MEAN CORPUSCULAR HGB CONC 33.3 % (32.0-36.0); MONO % 7.9 % (0.0-8.0); NEUT % 66.6 % (16.0-70.0); PLATELET COUNT 254 TH/MM3 (150-450); RED CELL DISTRIBUTION WIDTH 17.2 % (11.6-17.2); WHITE BLOOD COUNT 6.6 TH/MM3 (4.0-11.0)
[2017-01-21 09:16] LABS: PROTHROMBIN TIME - PATIENT 10.6 SEC (9.8-11.6)
[2017-01-21] MEDS: DOCUSATE SODIUM 50 MG/SENNA 8.6 MG TAB PO SCH ×2 (10:01→19:37)
[2017-01-21 11:06] LABS: ANION GAP 11 MEQ/L (5-15)
[2017-01-21 11:12] LABS: ALKALINE PHOSPHATASE 300 U/L (45-117); ALT (GPT) 156 U/L (10-53); AST (GOT) 53 U/L (15-37); BICARBONATE 20.9 MEQ/L (21.0-32.0); BLOOD UREA NITROGEN 7 MG/DL (7-18); CHLORIDE 106 MEQ/L (98-107); GLOMERULAR FILTRATION RATE 88 ML/MIN (>89); MAGNESIUM 1.9 MG/DL (1.5-2.5); POTASSIUM 3.8 MEQ/L (3.5-5.1); SODIUM (NA) 138 MEQ/L (136-145)
[2017-01-21 11:13] LABS: AMYLASE 336 U/L (25-115)
[2017-01-21 12:00] VITALS: BP 182/86; PULSE 52; RESP 16; TEMP 98.7; O2SAT 98
--- NOTE | 2017-01-21 12:36 | PD.CONS ---
HPI Service General surgery Consult Requested By Dr. Clemens Reason for Consult Gallbladder disease Primary Care Physician Mukul Kyle D.O. History of Present Illness 27-year-old female presents with abdominal pain in the right upper quadrant and epigastrium for about 4 days. She had a 6 weeks ago. She was noted to have elevated LFTs. Abdominal ultrasound showed an 8 mm common duct and probable gallstones. MRCP was performed which showed tiny stones and a benign gallbladder but no evidence of filling defects in the common bile duct. The patient has had improvement of her transaminases but the bilirubin and alkaline phosphatase of again risen. She has developed elevated lipase. She states that her pain is better than when she came in but is persistent. She did have emesis yesterday. Past surgical history includes only 2. Review of Systems Constitutional: DENIES: Fever, Chills Eyes: DENIES: Eye inflammation, Eye pain Respiratory: DENIES: Cough, Shortness of breath Cardiovascular: DENIES: Chest pain, Palpitations Gastrointestinal: COMPLAINS OF: Abdominal pain, Nausea, Vomiting Musculoskeletal: DENIES: Stiffness, Joint Swelling Integumentary: DENIES: Pruritus, Rash Neurologic: DENIES: Paresthesias, Seizures Past Family Social History Past Medical History None Past Surgical History 2 Reported Medications None Allergies: Coded Allergies: No Known Allergies (Verified Allergy, Unknown, 01/18/17) Active Ordered Medications Current Medications Medications (Trade) Dose Ordered Sig/Arianna Route Start Time Stop Time Status Last Admin Piperacillin Sod/ Tazobactam Sod 100 ml @ 200 mls/hr Q6H IV 01/19/17 10:00 01/21/17 10:01 (NS Flush) 2 ml UNSCH PRN IV FLUSH 01/19/17 11:45 (NS Flush) 2 ml BID IV FLUSH 01/19/17 21:00 (Tylenol) 650 mg Q4H PRN PO 01/19/17 11:45 (Zofran Inj) 4 mg Q6H PRN IVP 01/19/17 11:45 01/20/17 04:38 (Compazine Supp) 25 mg Q12H PRN RECTAL 01/19/17 11:45 01/19/17 19:23 (Tylenol) 650 mg Q6H PRN PO 01/19/17 11:45 (Percocet 5-325 Mg) 1 tab Q6H PRN PO 01/19/17 11:45 (Percocet 10-325 Mg) 1 tab Q6H PRN PO 01/19/17 11:45 01/20/17 17:55 (Morphine Inj) 2 mg Q3H PRN IV PUSH 01/19/17 11:45 (Morphine Inj) 4 mg Q3H PRN IV PUSH 01/19/17 11:45 01/20/17 04:38 (Narcan Inj) 0.4 mg UNSCH PRN IV PUSH 01/19/17 11:45 (Vandana-Colace) 1 tab BID PO 01/19/17 21:00 01/21/17 10:01 (Milk Of Magnesia Liq) 30 ml Q12H PRN PO 01/19/17 11:45 (Senokot) 17.2 mg Q12H PRN PO 01/19/17 11:45 (Dulcolax Supp) 10 mg DAILY PRN RECTAL 01/19/17 11:45 (Lactulose Liq) 30 ml DAILY PRN PO 01/19/17 11:45 (Protonix Inj) 40 mg Q24H IV PUSH 01/19/17 17:00 01/20/17 16:38 Potassium Chloride/Dextrose/ Sod Cl 1,000 ml @ 75 mls/hr [id number] IV 01/20/17 10:52 01/21/17 02:17 Family History Noncontributory Social History Occasional marijuana. No alcohol tobacco or drug use. Physical Exam Vital Signs Vital Signs Date Time Temp Pulse Resp B/P (MAP) Pulse Ox O2 Delivery O2 Flow Rate FiO2 01/21/17 08:00 97.7 46 16 121/80 (94) 98 01/21/17 00:40 97.5 49 18 122/59 (80) 99 01/20/17 20:00 97.8 49 18 131/60 (83) 98 01/20/17 16:00 97.7 66 16 113/68 (83) 98 Physical Exam GENERAL: Awake and alert. No acute distress. Cooperative. HEAD: Normocephalic. Atraumatic. EYES: Pupils equal round and reactive to light bilaterally. No scleral icterus. CHEST: Nonlabored breathing. No respiratory distress. CARDIOVASCULAR: Sinus bradycardia ABDOMEN: Well-healed scar. Moderate epigastric and right upper quadrant tenderness to palpation. EXTREMITIES: No cyanosis or edema. SKIN: Warm, dry, nonjaundiced. Laboratory Laboratory Tests Test 01/21/17 08:20 White Blood Count 6.6 Red Blood Count 4.30 Hemoglobin 11.8 Hematocrit 35.5 Mean Corpuscular Volume 82.5 Mean Corpuscular Hemoglobin 27.5 Mean Corpuscular Hemoglobin Concent 33.3 Red Cell Distribution Width 17.2 Platelet Count 254 Mean Platelet Volume 8.4 Neutrophils (%) (Auto) 66.6 Lymphocytes (%) (Auto) 23.8 Monocytes (%) (Auto) 7.9 Eosinophils (%) (Auto) 1.4 Basophils (%) (Auto) 0.3 Neutrophils # (Auto) 4.4 Lymphocytes # (Auto) 1.6 Monocytes # (Auto) 0.5 Eosinophils # (Auto) 0.1 Basophils # (Auto) 0.0 CBC Comment DIFF FINAL Differential Comment Prothrombin Time 10.6 Prothromb Time International Ratio 1.0 Blood Urea Nitrogen 7 Creatinine 0.79 Random Glucose 86 Total Protein 7.2 Albumin 2.9 Calcium Level 8.3 Phosphorus Level 2.3 Magnesium Level 1.9 Alkaline Phosphatase 300 Aspartate Amino Transf (AST/SGOT) 53 Alanine Aminotransferase (ALT/SGPT) 156 Total Bilirubin 4.0 Sodium Level 138 Potassium Level 3.8 Chloride Level 106 Carbon Dioxide Level 20.9 Anion Gap 11 Estimat Glomerular Filtration Rate 88 Amylase Level 336 Lipase 2076 Result Diagram: 01/21/1781901/21/17819 Imaging Last Impressions Cholangiopancreatography MRI 01/19/17 0000 Signed Impressions: Service Date/Time: Thursday, January 19, 2017 13:37 - CONCLUSION: Tiny stones in the benign appearing gallbladder. Normal common duct. Given the size of the stones we could be missing a tiny common duct stone on this exam. Kolton Marquez MD FACR Abdomen Ultrasound 01/19/17 0000 Signed Impressions: Service Date/Time: Thursday, January 19, 2017 09:08 - CONCLUSION: 8 mm common bile duct Probable gallstones. MRCP or HIDA scan may be of benefit. Kolton Marquez MD FACR Assessment and Plan Assessment and Plan 27 year-old female with elevated LFTs and an obstructive pattern and elevated lipase. The MRCP did not show any stones in the common bile duct, but I think she may have some sludge present. I recommend ERCP. I will plan to perform laparoscopic cholecystectomy probably as an inpatient when labs improve and she is doing well clinically. Discussed Condition With Dr. Sarath PEDRO Sai,Marc CLEMENTS Jan 21, 2017 12:36
--- NOTE | 2017-01-21 12:44 | HHI.PR ---
Subjective Remarks 27-year-old female presents to the emergency department with a 2 day history of severe epigastric abdominal pain that radiates to her shoulder and nausea/ vomiting. The patient reports she was in her usual state of health when 2 days ago she started to have right upper quadrant pain that was worse with inspiration. She reports the pain intensified to the point where she felt it necessary to be evaluated in the ED. The patient is also concerned because she has not been able to keep anything down. She reports throwing up everything that she takes nothing by mouth. She denies fever/chills. Patient's lab work was significant for transaminitis with elevated alkaline phosphatase and a total bilirubin of 2.8. She does not have leukocytosis. CT of the abdomen/ pelvis showed no acute disease. 11 SEEN BY GI MRCP ORDERED DW PATIENT AND RN AND FAMILY RECENT WITH LOCAL WOUND INFECTION 01-20 STILL HAVING ABDOMINAL PAIN LFTS ARE TRENDING DOWN DW RN AND PT AND CM AM LABS CLEAR LIQUIDS IF OK WITH GI 01-21 SEEN BY SURGERY THEY WANT AN ERCP GI IS DISCUSSING WITH HER ALSO WILL NEED CHOLECYSTECTOMY STILL HAVING ABDOMINAL PAIN GOING FOR ERCP TODAY Objective Vitals Vital Signs Date Time Temp Pulse Resp B/P (MAP) Pulse Ox O2 Delivery O2 Flow Rate FiO2 01/21/17 08:00 97.7 46 16 121/80 (94) 98 01/21/17 00:40 97.5 49 18 122/59 (80) 99 01/20/17 20:00 97.8 49 18 131/60 (83) 98 01/20/17 16:00 97.7 66 16 113/68 (83) 98 I/O 01/20/17 01/20/17 01/20/17 01/21/17 01/21/17 01/21/17 07:00 15:00 23:00 07:00 15:00 23:00 Intake Total 0 ml 487 ml 876 ml Balance 0 ml 487 ml 876 ml Intake Oral 0 ml 0 ml IV Total 487 ml 876 ml # Voids 2 2 # Bowel Movements 0 0 Result Diagram: 01/21/17 0820 01/21/17 0820 Other Results Laboratory Tests Test 01/19/17 12:51 01/19/17 12:57 01/20/17 08:08 01/21/17 08:20 White Blood Count 6.5 TH/MM3 7.5 TH/MM3 6.6 TH/MM3 Red Blood Count 4.33 MIL/MM3 4.45 MIL/MM3 4.30 MIL/MM3 Hemoglobin 11.7 GM/DL 11.8 GM/DL 11.8 GM/DL Hematocrit 35.9 % 37.0 % 35.5 % Mean Corpuscular Volume 83.0 FL 83.2 FL 82.5 FL Mean Corpuscular Hemoglobin 27.0 PG 26.6 PG 27.5 PG Mean Corpuscular Hemoglobin Concent 32.5 % 32.0 % 33.3 % Red Cell Distribution Width 16.4 % 16.7 % 17.2 % Platelet Count 271 TH/MM3 260 TH/MM3 254 TH/MM3 Mean Platelet Volume 7.9 FL 8.0 FL 8.4 FL Neutrophils (%) (Auto) 60.6 % 67.3 % 66.6 % Lymphocytes (%) (Auto) 29.8 % 25.3 % 23.8 % Monocytes (%) (Auto) 8.2 % 5.9 % 7.9 % Eosinophils (%) (Auto) 1.2 % 1.3 % 1.4 % Basophils (%) (Auto) 0.2 % 0.2 % 0.3 % Neutrophils # (Auto) 3.9 TH/MM3 5.0 TH/MM3 4.4 TH/MM3 Lymphocytes # (Auto) 1.9 TH/MM3 1.9 TH/MM3 1.6 TH/MM3 Monocytes # (Auto) 0.5 TH/MM3 0.4 TH/MM3 0.5 TH/MM3 Eosinophils # (Auto) 0.1 TH/MM3 0.1 TH/MM3 0.1 TH/MM3 Basophils # (Auto) 0.0 TH/MM3 0.0 TH/MM3 0.0 TH/MM3 CBC Comment DIFF FINAL DIFF FINAL DIFF FINAL Differential Comment Blood Urea Nitrogen 9 MG/DL 12 MG/DL 7 MG/DL Creatinine 0.82 MG/DL 0.86 MG/DL 0.79 MG/DL Random Glucose 64 MG/DL 54 MG/DL 86 MG/DL Total Protein 6.7 GM/DL 6.7 GM/DL 7.2 GM/DL Albumin 2.8 GM/DL 2.8 GM/DL 2.9 GM/DL Calcium Level 8.4 MG/DL 8.5 MG/DL 8.3 MG/DL Alkaline Phosphatase 258 U/L 254 U/L 300 U/L Aspartate Amino Transf (AST/SGOT) 158 U/L 63 U/L 53 U/L Alanine Aminotransferase (ALT/SGPT) 281 U/L 208 U/L 156 U/L Total Bilirubin 3.4 MG/DL 3.7 MG/DL 4.0 MG/DL Sodium Level 141 MEQ/L 142 MEQ/L 138 MEQ/L Potassium Level 3.7 MEQ/L 4.1 MEQ/L 3.8 MEQ/L Chloride Level 107 MEQ/L 108 MEQ/L 106 MEQ/L Carbon Dioxide Level 23.9 MEQ/L 22.7 MEQ/L 20.9 MEQ/L Anion Gap 10 MEQ/L 11 MEQ/L 11 MEQ/L Estimat Glomerular Filtration Rate 84 ML/MIN 80 ML/MIN 88 ML/MIN Hemoglobin A1c 5.3 % 5.3 % Phosphorus Level 2.9 MG/DL 3.3 MG/DL 2.3 MG/DL Magnesium Level 2.1 MG/DL 2.0 MG/DL 1.9 MG/DL Lipase 215 U/L 405 U/L 2077 U/L Free Thyroxine 1.21 NG/DL 1.28 NG/DL Thyroid Stimulating Hormone 3rd Gen 1.130 uIU/ML Amylase Level 98 U/L 336 U/L Prothrombin Time 10.6 SEC Prothromb Time International Ratio 1.0 RATIO Imaging Last Impressions Cholangiopancreatography MRI 01/19/17 0000 Signed Impressions: Service Date/Time: Thursday, January 19, 2017 13:37 - CONCLUSION: Tiny stones in the benign appearing gallbladder. Normal common duct. Given the size of the stones we could be missing a tiny common duct stone on this exam. Kolton Marquez MD FACR Abdomen Ultrasound 01/19/17 0000 Signed Impressions: Service Date/Time: Thursday, January 19, 2017 09:08 - CONCLUSION: 8 mm common bile duct Probable gallstones. MRCP or HIDA scan may be of benefit. Kolton Marquez MD FACR Objective Remarks GENERAL: Awake alert oriented talkative and cooperative SKIN: Warm and dry. HEAD: Atraumatic. Normocephalic. EYES: Pupils equal and round. No scleral icterus. No injection or drainage. Extraocular muscles intact ENT: No nasal bleeding or discharge. Mucous membranes pink and moist. Tongue is midline NECK: Trachea midline. No JVD. Neck is supple CARDIOVASCULAR: Regular rate and rhythm. S1 and S2 no S3 or S4 no heave or thrill or rub or gallop RESPIRATORY: No accessory muscle use. Clear to auscultation. Breath sounds equal bilaterally. GASTROINTESTINAL: Abdomen soft, SOME TENDERNESS, nondistended. Hepatic and splenic margins not palpable. Obese MUSCULOSKELETAL: Extremities without clubbing, cyanosis, or edema. No obvious deformities. NEUROLOGICAL: Awake and alert. No obvious cranial nerve deficits. Motor grossly within normal limits. Five out of 5 muscle strength in the arms and legs. Normal speech. PSYCHIATRIC: Appropriate mood and affect; insight and judgment normal. Medications and IVs Current Medications Sodium Chloride 1,000 ml @ 100 mls/hr Q10H IV Last administered on 01/20/17 04:14; Start 01/18/17 at 22:14; Stop 01/20/17 at 09:53; Status DC Sodium Chloride (NS Flush) 2 ml UNSCH PRN IV FLUSH FLUSH AFTER USING IV ACCESS ; Start 01/18/17 at 22:15; Stop 01/19/17 at 12:00; Status DC Sodium Chloride (NS Flush) 2 ml BID IV FLUSH ; Start 01/19/17 at 09:00; Stop at 12:00; Status DC Ondansetron HCl (Zofran Inj) 4 mg Q6H PRN IVP NAUSEA OR VOMITING; Start at 22:15; Stop 01/19/17 at 12:00; Status DC Naloxone HCl (Narcan Inj) 0.4 mg UNSCH PRN IV PUSH SEE LABEL COMMENTS; Start 01/18/17 at 22:15; Stop 01/19/17 at 08:41; Status DC Piperacillin Sod/ Tazobactam Sod 50 ml @ 100 mls/hr Q6H IV ; Start 01/19/17 at 03:00; Stop 01/19/17 at 03:00; Status DC Morphine Sulfate (Morphine Inj) 2 mg Q3H PRN IV PUSH pain > 4 Last administered on 01/19/17 07:25; Start 01/19/17 at 00:45; Stop 01/19/17 at 08:41 ; Status DC Piperacillin Sod/ Tazobactam Sod 100 ml @ 200 mls/hr Q6H IV Last administered on 11/8/17at 10:01; Start 01/19/17 at 10:00 Sodium Chloride (NS Flush) 2 ml UNSCH PRN IV FLUSH FLUSH AFTER USING IV ACCESS ; Start 01/19/17 at 08:45; Stop 01/19/17 at 08:45; Status DC Sodium Chloride (NS Flush) 2 ml BID IV FLUSH ; Start 01/19/17 at 09:00; Stop at 09:00; Status DC Acetaminophen (Tylenol) 650 mg Q4H PRN PO TEMP > 100.4; Start 01/19/17 at 08:45 ; Stop 01/19/17 at 12:00; Status DC Prochlorperazine (Compazine Supp) 25 mg Q12H PRN RECTAL NAUSEA OR VOMITING; Start 01/19/17 at 08:45; Stop 01/19/17 at 12:00; Status DC Acetaminophen (Tylenol) 650 mg Q6H PRN PO PAIN SCALE 1 TO 2; Start 01/19/17 at 08:45; Stop 01/19/17 at 12:00; Status DC Oxycodone/ Acetaminophen (Percocet 5-325 Mg) 1 tab Q6H PRN PO PAIN SCALE 3 TO 5; Start 01/19/17 at 08:45; Stop 01/19/17 at 12:00; Status DC Oxycodone/ Acetaminophen (Percocet 10-325 Mg) 1 tab Q6H PRN PO PAIN SCALE 6 TO 10; Start 01/19/17 at 08:45; Stop 01/19/17 at 12:00; Status DC Morphine Sulfate (Morphine Inj) 2 mg Q3H PRN IV PUSH Pain 3-5; if unable to take PO; Start 01/19/17 at 08:45; Stop 01/19/17 at 12:06; Status DC Morphine Sulfate (Morphine Inj) 4 mg Q3H PRN IV PUSH Pain 6-10;if unable to take PO Last administered on 01/19/17t 10:52; Start 01/19/17 at 08:45; Stop 01/19/17 at 12:06; Status DC Naloxone HCl (Narcan Inj) 0.4 mg UNSCH PRN IV PUSH SEE LABEL COMMENTS; Start 01/19/17 at 08:45; Stop 01/19/17 at 12:06; Status DC Senna/Docusate Sodium (Vandana-Colace) 1 tab BID PO Last administered on 10:51; Start 01/19/17 at 09:00; Stop 01/19/17 at 12:08; Status DC Magnesium Hydroxide (Milk Of Magnesia Liq) 30 ml Q12H PRN PO Mild constipation ; Start 01/19/17 at 08:45; Stop 01/19/17 at 12:06; Status DC Sennosides (Senokot) 17.2 mg Q12H PRN PO Moderate constipation; Start 01/19/17 at 08:45; Stop 01/19/17 at 12:08; Status DC Bisacodyl (Dulcolax Supp) 10 mg DAILY PRN RECTAL SEVERE CONSITIPATION; Start 01/19/17 at 08:45; Stop 01/19/17 at 12:06; Status DC Lactulose (Lactulose Liq) 30 ml DAILY PRN PO SEVERE CONSITIPATION; Start at 08:45; Stop 01/19/17 at 12:06; Status DC Sodium Chloride (NS Flush) 2 ml UNSCH PRN IV FLUSH FLUSH AFTER USING IV ACCESS ; Start 01/19/17 at 11:45 Sodium Chloride (NS Flush) 2 ml BID IV FLUSH ; Start 01/19/17 at 21:00 Acetaminophen (Tylenol) 650 mg Q4H PRN PO TEMP > 100.4; Start 01/19/17 at 11:45 Ondansetron HCl (Zofran Inj) 4 mg Q6H PRN IVP NAUSEA OR VOMITING Last administered on 01/20/17 04:38; Start 01/19/17 at 11:45 Prochlorperazine (Compazine Supp) 25 mg Q12H PRN RECTAL NAUSEA OR VOMITING Last administered on 01/19/17 19:23; Start 01/19/17 at 11:45 Acetaminophen (Tylenol) 650 mg Q6H PRN PO PAIN SCALE 1 TO 2; Start 01/19/17 at 11:45 Oxycodone/ Acetaminophen (Percocet 5-325 Mg) 1 tab Q6H PRN PO PAIN SCALE 3 TO 5; Start 01/19/17 at 11:45 Oxycodone/ Acetaminophen (Percocet 10-325 Mg) 1 tab Q6H PRN PO PAIN SCALE 6 TO 10 Last administered on 01/20/17 17:55; Start 01/19/17 at 11:45 Morphine Sulfate (Morphine Inj) 2 mg Q3H PRN IV PUSH Pain 3-5; if unable to take PO; Start 01/19/17 at 11:45 Morphine Sulfate (Morphine Inj) 4 mg Q3H PRN IV PUSH Pain 6-10;if unable to take PO Last administered on 01/20/17 04:38; Start 01/19/17 at 11:45 Naloxone HCl (Narcan Inj) 0.4 mg UNSCH PRN IV PUSH SEE LABEL COMMENTS; Start 01/19/17 at 11:45 Senna/Docusate Sodium (Vandana-Colace) 1 tab BID PO Last administered on 10:01; Start 01/19/17 at 21:00 Magnesium Hydroxide (Milk Of Magnesia Liq) 30 ml Q12H PRN PO Mild constipation ; Start 01/19/17 at 11:45 Sennosides (Senokot) 17.2 mg Q12H PRN PO Moderate constipation; Start 01/19/17 at 11:45 Bisacodyl (Dulcolax Supp) 10 mg DAILY PRN RECTAL SEVERE CONSITIPATION; Start 01/19/17 at 11:45 Lactulose (Lactulose Liq) 30 ml DAILY PRN PO SEVERE CONSITIPATION; Start at 11:45 Pantoprazole Sodium (Protonix Inj) 40 mg Q24H IV PUSH Last administered on 01/20 16:38; Start 01/19/17 at 17:00 Potassium Chloride/Dextrose/ Sod Cl 1,000 ml @ 75 mls/hr [id number] IV Last administered on 01/21/17 02:17; Start 01/20/17 at 10:52 Urinary Catheter: No Vascular Central Line Catheter: No A/P Assessment and Plan 27-year-old female presents with 2 days of nausea/vomiting and abdominal pain with transaminitis and elevated total bilirubin. 1. Abdominal pain/transaminitis/elevated T bili/nausea and vomiting Given patient's lab values and right upper quadrant pain, concern for choledocholithiasis although no dilated ducts on CT abdomen/pelvis Ultrasound of the gallbladder pending Consult gastroenterology Nothing by mouth FEN NS at 100 cc/hour NPO Electrolytes within normal limits SCDs Recent section 6 weeks ago with local wound infection resolved DW GI WILL GET MRCP TODAY- HAS BEEN DONE- RESULTS REVIEWED PANCREATITIS WITH ELEVATED LIPASE STILL HAVING ABDOMINAL PAIN A.m. labs Discussed with patient and RN and GI AND CM NEEDS ERCP WITH GI AND THEN CHOLECYSTECTOMY DW RN AND PT AND SURGERY AND CM AND Discharge Planning HAD MRCP --WILL NEED ERCP STILL HAVING ABDOMINAL PAIN DW RN AND SURGERY Kolton Clemens DO Jan 21, 2017 12:44
--- NOTE | 2017-01-21 12:48 | HHI.GIFU ---
Subjective Remarks Pt continues to have right scapula pain and is now having more RUQ tenderness. Overall, slightly improved from yesterday. (Nilam Diego) Objective Vitals I&O Vital Signs Date Time Temp Pulse Resp B/P (MAP) Pulse Ox O2 Delivery O2 Flow Rate FiO2 01/21/17 12:00 98.7 52 16 182/86 (118) 98 01/21/17 08:00 97.7 46 16 121/80 (94) 98 01/21/17 00:40 97.5 49 18 122/59 (80) 99 01/20/17 20:00 97.8 49 18 131/60 (83) 98 01/20/17 16:00 97.7 66 16 113/68 (83) 98 I/O 01/20/17 01/20/17 01/20/17 01/21/17 01/21/17 01/21/17 06:59 14:59 22:59 06:59 14:59 22:59 Intake Total 0 ml 487 ml 876 ml Balance 0 ml 487 ml 876 ml Intake Oral 0 ml 0 ml IV Total 487 ml 876 ml # Voids 2 2 # Bowel Movements 0 0 Laboratory Laboratory Tests Test 01/21/17 08:20 White Blood Count 6.6 Red Blood Count 4.30 Hemoglobin 11.8 Hematocrit 35.5 Mean Corpuscular Volume 82.5 Mean Corpuscular Hemoglobin 27.5 Mean Corpuscular Hemoglobin Concent 33.3 Red Cell Distribution Width 17.2 Platelet Count 254 Mean Platelet Volume 8.4 Neutrophils (%) (Auto) 66.6 Lymphocytes (%) (Auto) 23.8 Monocytes (%) (Auto) 7.9 Eosinophils (%) (Auto) 1.4 Basophils (%) (Auto) 0.3 Neutrophils # (Auto) 4.4 Lymphocytes # (Auto) 1.6 Monocytes # (Auto) 0.5 Eosinophils # (Auto) 0.1 Basophils # (Auto) 0.0 CBC Comment DIFF FINAL Differential Comment Prothrombin Time 10.6 Prothromb Time International Ratio 1.0 Blood Urea Nitrogen 7 Creatinine 0.79 Random Glucose 86 Total Protein 7.2 Albumin 2.9 Calcium Level 8.3 Phosphorus Level 2.3 Magnesium Level 1.9 Alkaline Phosphatase 300 Aspartate Amino Transf (AST/SGOT) 53 Alanine Aminotransferase (ALT/SGPT) 156 Total Bilirubin 4.0 Sodium Level 138 Potassium Level 3.8 Chloride Level 106 Carbon Dioxide Level 20.9 Anion Gap 11 Estimat Glomerular Filtration Rate 88 Amylase Level 336 Lipase 2076 Imaging Last Impressions Cholangiopancreatography MRI 01/19/17 0000 Signed Impressions: Service Date/Time: Thursday, January 19, 2017 13:37 - CONCLUSION: Tiny stones in the benign appearing gallbladder. Normal common duct. Given the size of the stones we could be missing a tiny common duct stone on this exam. Kolton Marquez MD FACR Abdomen Ultrasound 01/19/17 0000 Signed Impressions: Service Date/Time: Thursday, January 19, 2017 09:08 - CONCLUSION: 8 mm common bile duct Probable gallstones. MRCP or HIDA scan may be of benefit. Kolton Marquez MD FACR Physical Exam HEENT: Normocephalic; atraumatic; no jaundice. CHEST: Resp even/unlabored. CARDIAC: RRR ABDOMEN: Soft, nondistended,RUQ tenderness; no hepatosplenomegaly; bowel sounds are present in all four quadrants. EXTREMITIES: No clubbing, cyanosis, or edema. SKIN: Normal; no rash; no jaundice. CONTRACT CLERK: No focal deficits; alert and oriented times three. (Nilam Diego [facility]) Assessment and Plan Plan ASSESSMENT: - RUQ pain, cholelithiasis, elevated lfts. US (01/19/17)---> 8 mm common bile duct. Probable gallstones. MRCP or HIDA scan may be of benefit. MRCP (01/19/17)---> Tiny stones in the benign appearing gallbladder. Normal common duct. Given the size of the stones, we could be missing a tiny common duct stone on this exam. Continues to have right scapula pain and now with more RUQ tenderness. Lipase increased to 2076. Persistent elevation of bilirubin. T. Bili 4.0, AST 53, ALT 156, Alk Phosph 300. S/P GS evaluation, requesting ERCP for GS pancreatitis with persistent elevated bilirubin, worsening lipase. - Elevated LFTs, obstructive pattern. MRCP as above. - Elevated Lipase. PLAN: - Plan for ERCP with possible sphincterotomy possible stent placement - Obtain consents - NPO - PPI - Hepatitis profile pending. - LFT, Lipase level in am - Supportive care - Further recommendations to follow based on results of above - PT seen and examined by Dr. Hooks and myself and this note is written on his behalf (Nilam Diego) Physician Comments In view of persistent symptoms and worsening of cholestasis. will proceed with ERCP. Risk, benefits and possible complications explained and patient agreed. Further recommendations to follow. (Eloy Hooks MD) Nilam Diego Jan 21, 2017 12:48 Eloy Hooks MD Jan 21, 2017 13:04
[2017-01-21] MEDS ORDERED: PROPOFOL 500 MG/50 ML INJ 50 ML ONE (13:24)
[2017-01-21] MEDS ORDERED: PROPOFOL 200 MG/20 ML AMP ONE (13:24)
--- NOTE | 2017-01-21 14:00 | GIPROC ---
[facility] [address] [facility]. [facility], [address] ERCP PROCEDURE REPORT EXAM DATE: 01/21/2017 PATIENT NAME: Angela Tracy MR #: [id number] BIRTHDATE: 1990 ATTENDING: Eloy Hooks MD ORDER #: [id number] SACK SEWER: Tisha Ramírez and Sanjay García STATUS: inpatient INDICATIONS: The patient is a 27 yr old female here for an ERCP due to suspected or rule out bile duct stones PROCEDURE PERFORMED: ERCP with sphincterotomy/papillotomy MEDICATIONS: None and Per Anesthesia. CONSENT: The patient understands the risks and benefits of the procedure and understands that these risks include, but are not limited to: sedation, allergic reaction, infection, perforation and/or bleeding. Alternative means of evaluation and treatment include, among others: physical exam, x-rays, and/or surgical intervention. The patient elects to proceed with this endoscopic procedure. medical equipment was checked for proper function. Hand hygiene and appropriate measures for infection prevention was taken. After the risks, benefits and alternatives of the procedure were thoroughly explained, Informed was verified, confirmed and timeout was successfully executed by the treatment team. With the patient in left semi-prone position, medications were administered intravenously.The [employer]ax [id number] was passed from the mouth into the esophagus and further advanced from the esophagus into the stomach. From stomach scope was directed to the second portion of the duodenum. Major papilla was aligned with the duodenoscope. The scope position was confirmed fluoroscopically. Rest of the findings/therapeutics are given below. The scope was then completely withdrawn from the patient and the procedure completed. The pulse, BP, and O2 saturation were monitored and documented by the physician and the nursing staff throughout the entire procedure. The patient was cared for as planned according to standard protocol. The patient was then discharged to recovery in stable condition and with appropriate post procedure care. The ampulla was located the second portion of the duodenum. The ampulla appeared normal. The biliary tree appeared normal with no evidence of stricture or dilation. With guidewire in the bile duct, a biliary sphincterotomy was performed using the sphincterotome. With guidewire in the bile duct, a small biliary sphincterotomy was performed using the sphincterotome. Using a stone extraction balloon the bile duct was swept twice. No stones or debris seen. ADVERSE EVENT: There were no complications. IMPRESSIONS: 1. Normal appearing ampulla 2. The biliary tree appeared normal with no evidence of stricture, CBD around 7 mm in diameter, balloon ductal sweep negative for stones, debris or sludge. RECOMMENDATIONS: No treatment REPEAT EXAM: NONE Eloy Hooks MD eSigned: Eloy Hooks MD 01/21/2017 2:00 PM cc:
--- NOTE | 2017-01-21 14:09 | RADRPT ---
EXAM DATE/TIME: 01/21/2017 13:52 [place] COMPARISON: MRCP W/O CONTRAST, January 19, 2017, 13:37. INDICATIONS : Obstruction, balloon sweep and contrast injection. FLUORO TIME: 0.26 minutes IMAGE COUNT: 1 CONTRAST: Instilled by Ordering Physician MEDICAL HISTORY : None. SURGICAL HISTORY : None. ENCOUNTER: Initial ACUITY: 1 day PAIN SCORE: Non-responsive. LOCATION: Right abdomen. FINDINGS: An ERCP was performed by the ordering physician. The images demonstrate no common duct stones. CONCLUSION: ERCP as above. Kolton Marquez MD FACR on January 21, 2017 at 14:07 Board Certified Radiologist. This report was verified electronically.
[2017-01-21] MEDS: oxyCODONE/ACETAMINOPHEN 10 MG/325 MG TAB PO PRN (14:44)
[2017-01-21] MEDS: ONDANSETRON HCL 4 MG/2 ML VIAL IVP PRN (15:34)
[2017-01-21 16:00] VITALS: BP 135/81; PULSE 46; RESP 16; TEMP 97.3; O2SAT 98
[2017-01-21] MEDS: PANTOPRAZOLE SODIUM 40 MG VIAL IV PUSH SCH (16:48)
[2017-01-21] MEDS: PROCHLORPERAZINE 25 MG SUPP RECTAL PRN (18:24)
[2017-01-21 20:00] VITALS: BP 120/70; PULSE 50; RESP 18; TEMP 97.7; O2SAT 99
[2017-01-22] VITALS: BP 134/74; PULSE 54; RESP 18; TEMP 98; O2SAT 97
[2017-01-22] MEDS: PIPERACIL-TAZO 4.5 GM PREMIX 100 ML IV SCH ×4 (04:00→19:59)
[2017-01-22 08:00] VITALS: BP 136/69; PULSE 47; RESP 16; TEMP 98; O2SAT 97
[2017-01-22 08:21] LABS: AUTOMATED NEUTROPHIL # 3.9 TH/MM3 (1.8-7.7); BASOPHIL % 0.2 % (0.0-2.0); EOSINOPHIL # 0.1 TH/MM3 (0-0.4); EOSINOPHIL % 1.8 % (0.0-4.0); HEMO FLAGS DIFF FINAL; LYMPH % 27.8 % (9.0-44.0); LYMPHOCYTE # 1.7 TH/MM3 (1.0-4.8); MEAN CELL VOLUME 83.1 FL (80.0-100.0); MEAN CORPUSCULAR HGB CONC 32.5 % (32.0-36.0); MONO % 8.7 % (0.0-8.0); NEUT % 61.5 % (16.0-70.0); PLATELET COUNT 253 TH/MM3 (150-450); RED CELL DISTRIBUTION WIDTH 16.9 % (11.6-17.2); WHITE BLOOD COUNT 6.3 TH/MM3 (4.0-11.0)
[2017-01-22 08:22] LABS: PROTHROMBIN TIME - PATIENT 10.6 SEC (9.8-11.6)
[2017-01-22 08:50] LABS: ANION GAP 6 MEQ/L (5-15)
[2017-01-22] MEDS: DOCUSATE SODIUM 50 MG/SENNA 8.6 MG TAB PO SCH ×2 (08:53→19:59)
[2017-01-22] MEDS: SODIUM CHLORIDE 0.9% FLUSH 10 ML FLUSH IV FLUSH SCH ×2 (08:54→19:59)
[2017-01-22] MEDS: D5-1/2 NS + KCL 20 MEQ INJ 1,000 ML IV SCH ×2 (08:55→16:12)
[2017-01-22 08:56] LABS: ALKALINE PHOSPHATASE 261 U/L (45-117); ALT (GPT) 112 U/L (10-53); AST (GOT) 20 U/L (15-37); BICARBONATE 26.9 MEQ/L (21.0-32.0); BLOOD UREA NITROGEN 5 MG/DL (7-18); CHLORIDE 106 MEQ/L (98-107); GLOMERULAR FILTRATION RATE 87 ML/MIN (>89); POTASSIUM 4.5 MEQ/L (3.5-5.1); SODIUM (NA) 139 MEQ/L (136-145); TOTAL BILIRUBIN ADULT 1.3 MG/DL (0.2-1.0)
[2017-01-22 08:57] LABS: AMYLASE 153 U/L (25-115)
--- NOTE | 2017-01-22 10:09 | HHI.PR ---
Subjective Subjective Notes ERCP negative yesterday. Her pain is somewhat improved. Objective Vitals/I&O Vital Signs Date Time Temp Pulse Resp B/P (MAP) Pulse Ox O2 Delivery O2 Flow Rate FiO2 01/22/17 08:00 98.0 47 16 136/69 (91) 97 Labs Laboratory Tests Test 01/22/17 07:18 White Blood Count 6.3 Red Blood Count 4.20 Hemoglobin 11.3 Hematocrit 35.0 Mean Corpuscular Volume 83.1 Mean Corpuscular Hemoglobin 27.0 Mean Corpuscular Hemoglobin Concent 32.5 Red Cell Distribution Width 16.9 Platelet Count 253 Mean Platelet Volume 8.4 Neutrophils (%) (Auto) 61.5 Lymphocytes (%) (Auto) 27.8 Monocytes (%) (Auto) 8.7 Eosinophils (%) (Auto) 1.8 Basophils (%) (Auto) 0.2 Neutrophils # (Auto) 3.9 Lymphocytes # (Auto) 1.7 Monocytes # (Auto) 0.5 Eosinophils # (Auto) 0.1 Basophils # (Auto) 0.0 CBC Comment DIFF FINAL Differential Comment Prothrombin Time 10.6 Prothromb Time International Ratio 1.0 Blood Urea Nitrogen 5 Creatinine 0.80 Random Glucose 89 Total Protein 7.2 Albumin 2.8 Calcium Level 8.5 Phosphorus Level 2.9 Magnesium Level 2.0 Alkaline Phosphatase 261 Aspartate Amino Transf (AST/SGOT) 20 Alanine Aminotransferase (ALT/SGPT) 112 Total Bilirubin 1.3 Sodium Level 139 Potassium Level 4.5 Chloride Level 106 Carbon Dioxide Level 26.9 Anion Gap 6 Estimat Glomerular Filtration Rate 87 Amylase Level 153 Lipase 870 Radiology Last Impressions Cholangiopancreatography MRI 01/19/17 0000 Signed Impressions: Service Date/Time: Thursday, January 19, 2017 13:37 - CONCLUSION: Tiny stones in the benign appearing gallbladder. Normal common duct. Given the size of the stones we could be missing a tiny common duct stone on this exam. Kolton Marquez MD FACR Abdomen Ultrasound 01/19/17 0000 Signed Impressions: Service Date/Time: Thursday, January 19, 2017 09:08 - CONCLUSION: 8 mm common bile duct Probable gallstones. MRCP or HIDA scan may be of benefit. Kolton Marquez MD FACR Narrative Exam NAD Abd: soft, mod epigastric and RUQ ttp A/P Assessment and Plan 27 yo F with gallstones, improving LFTS and lipase. ERCP yesterday negative. Labs have significantly improved. I will plan laparoscopic cholecystectomy in the morning. Discussed in detail with her and she desires to proceed. SaiMarc MD Jan 22, 2017 10:09
[2017-01-22 12:00] VITALS: BP 135/73; PULSE 60; RESP 18; TEMP 98.3; O2SAT 99
--- NOTE | 2017-01-22 13:08 | HHI.PR ---
Subjective Remarks 27-year-old female presents to the emergency department with a 2 day history of severe epigastric abdominal pain that radiates to her shoulder and nausea/ vomiting. The patient reports she was in her usual state of health when 2 days ago she started to have right upper quadrant pain that was worse with inspiration. She reports the pain intensified to the point where she felt it necessary to be evaluated in the ED. The patient is also concerned because she has not been able to keep anything down. She reports throwing up everything that she takes nothing by mouth. She denies fever/chills. Patient's lab work was significant for transaminitis with elevated alkaline phosphatase and a total bilirubin of 2.8. She does not have leukocytosis. CT of the abdomen/ pelvis showed no acute disease. 01-19 SEEN BY GI MRCP ORDERED DW PATIENT AND RN AND FAMILY RECENT WITH LOCAL WOUND INFECTION 01-20 STILL HAVING ABDOMINAL PAIN LFTS ARE TRENDING DOWN DW RN AND PT AND CM AM LABS CLEAR LIQUIDS IF OK WITH GI 01-21 SEEN BY SURGERY THEY WANT AN ERCP GI IS DISCUSSING WITH HER ALSO WILL NEED CHOLECYSTECTOMY STILL HAVING ABDOMINAL PAIN GOING FOR ERCP TODAY 01-22 HAD ERCP AND SPHINCTEROTOMY ON 01-21 FOR SURGERY ON 01-23 DW RN AND PT AND SURGERY Objective Vitals Vital Signs Date Time Temp Pulse Resp B/P (MAP) Pulse Ox O2 Delivery O2 Flow Rate FiO2 01/22/17 12:00 98.3 60 18 135/73 (93) 99 01/22/17 08:00 98.0 47 16 136/69 (91) 97 01/22/17 00:00 98.0 54 18 134/74 (94) 97 01/21/17 20:00 97.7 50 18 120/70 (87) 99 01/21/17 16:00 97.3 46 16 135/81 (99) 98 01/21/17 14:00 97.7 66 18 167/91 (116) 97 I/O 01/21/17 01/21/17 01/21/17 01/22/17 01/22/17 01/22/17 07:00 15:00 23:00 07:00 15:00 23:00 Intake Total 600 ml 120 ml 1093 ml Balance 600 ml 120 ml 1093 ml Intake Oral 120 ml IV Total 100 ml 1093 ml Other 500 ml # Voids 3 # Bowel Movements 0 Result Diagram: 01/22/17 0718 01/22/17 0718 Other Results Laboratory Tests Test 01/20/17 08:08 01/21/17 08:20 01/22/17 07:18 White Blood Count 7.5 TH/MM3 6.6 TH/MM3 6.3 TH/MM3 Red Blood Count 4.45 MIL/MM3 4.30 MIL/MM3 4.20 MIL/MM3 Hemoglobin 11.8 GM/DL 11.8 GM/DL 11.3 GM/DL Hematocrit 37.0 % 35.5 % 35.0 % Mean Corpuscular Volume 83.2 FL 82.5 FL 83.1 FL Mean Corpuscular Hemoglobin 26.6 PG 27.5 PG 27.0 PG Mean Corpuscular Hemoglobin Concent 32.0 % 33.3 % 32.5 % Red Cell Distribution Width 16.7 % 17.2 % 16.9 % Platelet Count 260 TH/MM3 254 TH/MM3 253 TH/MM3 Mean Platelet Volume 8.0 FL 8.4 FL 8.4 FL Neutrophils (%) (Auto) 67.3 % 66.6 % 61.5 % Lymphocytes (%) (Auto) 25.3 % 23.8 % 27.8 % Monocytes (%) (Auto) 5.9 % 7.9 % 8.7 % Eosinophils (%) (Auto) 1.3 % 1.4 % 1.8 % Basophils (%) (Auto) 0.2 % 0.3 % 0.2 % Neutrophils # (Auto) 5.0 TH/MM3 4.4 TH/MM3 3.9 TH/MM3 Lymphocytes # (Auto) 1.9 TH/MM3 1.6 TH/MM3 1.7 TH/MM3 Monocytes # (Auto) 0.4 TH/MM3 0.5 TH/MM3 0.5 TH/MM3 Eosinophils # (Auto) 0.1 TH/MM3 0.1 TH/MM3 0.1 TH/MM3 Basophils # (Auto) 0.0 TH/MM3 0.0 TH/MM3 0.0 TH/MM3 CBC Comment DIFF FINAL DIFF FINAL DIFF FINAL Differential Comment Blood Urea Nitrogen 12 MG/DL 7 MG/DL 5 MG/DL Creatinine 0.86 MG/DL 0.79 MG/DL 0.80 MG/DL Random Glucose 54 MG/DL 86 MG/DL 89 MG/DL Total Protein 6.7 GM/DL 7.2 GM/DL 7.2 GM/DL Albumin 2.8 GM/DL 2.9 GM/DL 2.8 GM/DL Calcium Level 8.5 MG/DL 8.3 MG/DL 8.5 MG/DL Phosphorus Level 3.3 MG/DL 2.3 MG/DL 2.9 MG/DL Magnesium Level 2.0 MG/DL 1.9 MG/DL 2.0 MG/DL Alkaline Phosphatase 254 U/L 300 U/L 261 U/L Aspartate Amino Transf (AST/SGOT) 63 U/L 53 U/L 20 U/L Alanine Aminotransferase (ALT/SGPT) 208 U/L 156 U/L 112 U/L Total Bilirubin 3.7 MG/DL 4.0 MG/DL 1.3 MG/DL Sodium Level 142 MEQ/L 138 MEQ/L 139 MEQ/L Potassium Level 4.1 MEQ/L 3.8 MEQ/L 4.5 MEQ/L Chloride Level 108 MEQ/L 106 MEQ/L 106 MEQ/L Carbon Dioxide Level 22.7 MEQ/L 20.9 MEQ/L 26.9 MEQ/L Anion Gap 11 MEQ/L 11 MEQ/L 6 MEQ/L Estimat Glomerular Filtration Rate 80 ML/MIN 88 ML/MIN 87 ML/MIN Hemoglobin A1c 5.3 % Amylase Level 98 U/L 336 U/L 153 U/L Lipase 405 U/L 2077 U/L 870 U/L Free Thyroxine 1.28 NG/DL Prothrombin Time 10.6 SEC 10.6 SEC Prothromb Time International Ratio 1.0 RATIO 1.0 RATIO Gamma Glutamyl Transpeptidase 278 U/L Hepatitis A IgM Antibody NEGATIVE Hepatitis B Surface Antigen NEGATIVE Hepatitis C Antibody NEGATIVE Imaging Last Impressions GI Procedure 01/21/17 0000 Signed Impressions: Service Date/Time: Saturday, January 21, 2017 13:52 - CONCLUSION: ERCP as above. Kolton Marquez MD FACR Cholangiopancreatography MRI 01/19/17 0000 Signed Impressions: Service Date/Time: Thursday, January 19, 2017 13:37 - CONCLUSION: Tiny stones in the benign appearing gallbladder. Normal common duct. Given the size of the stones we could be missing a tiny common duct stone on this exam. Kolton Marquez MD FACR Abdomen Ultrasound 01/19/17 0000 Signed Impressions: Service Date/Time: Gaudencio, January 19, 2017 09:08 - CONCLUSION: 8 mm common bile duct Probable gallstones. MRCP or HIDA scan may be of benefit. Kolton Marquez MD FACR Objective Remarks GENERAL: Awake alert oriented talkative and cooperative SKIN: Warm and dry. HEAD: Atraumatic. Normocephalic. EYES: Pupils equal and round. No scleral icterus. No injection or drainage. Extraocular muscles intact ENT: No nasal bleeding or discharge. Mucous membranes pink and moist. Tongue is midline NECK: Trachea midline. No JVD. Neck is supple CARDIOVASCULAR: Regular rate and rhythm. S1 and S2 no S3 or S4 no heave or thrill or rub or gallop RESPIRATORY: No accessory muscle use. Clear to auscultation. Breath sounds equal bilaterally. GASTROINTESTINAL: Abdomen soft, SOME TENDERNESS, nondistended. Hepatic and splenic margins not palpable. Obese MUSCULOSKELETAL: Extremities without clubbing, cyanosis, or edema. No obvious deformities. NEUROLOGICAL: Awake and alert. No obvious cranial nerve deficits. Motor grossly within normal limits. Five out of 5 muscle strength in the arms and legs. Normal speech. PSYCHIATRIC: Appropriate mood and affect; insight and judgment normal. Procedures ERCP AND SPHINCTEROTOMY ON 01-21 Medications and IVs Current Medications Sodium Chloride 1,000 ml @ 100 mls/hr Q10H IV Last administered on 01/20/17t 04:14; Start 01/18/17 at 22:14; Stop 01/20/17 at 09:53; Status DC Sodium Chloride (NS Flush) 2 ml UNSCH PRN IV FLUSH FLUSH AFTER USING IV ACCESS ; Start 01/18/17 at 22:15; Stop 01/19/17 at 12:00; Status DC Sodium Chloride (NS Flush) 2 ml BID IV FLUSH ; Start 01/19/17 at 09:00; Stop at 12:00; Status DC Ondansetron HCl (Zofran Inj) 4 mg Q6H PRN IVP NAUSEA OR VOMITING; Start at 22:15; Stop 01/19/17 at 12:00; Status DC Naloxone HCl (Narcan Inj) 0.4 mg UNSCH PRN IV PUSH SEE LABEL COMMENTS; Start 01/18/17 at 22:15; Stop 01/19/17 at 08:41; Status DC Piperacillin Sod/ Tazobactam Sod 50 ml @ 100 mls/hr Q6H IV ; Start 01/19/17 at 03:00; Stop 01/19/17 at 03:00; Status DC Morphine Sulfate (Morphine Inj) 2 mg Q3H PRN IV PUSH pain > 4 Last administered on 01/19/17 07:25; Start 01/19/17 at 00:45; Stop 01/19/17 at 08:41 ; Status DC Piperacillin Sod/ Tazobactam Sod 100 ml @ 200 mls/hr Q6H IV Last administered on 01/22/17 08:53; Start 01/19/17 at 10:00 Sodium Chloride (NS Flush) 2 ml UNSCH PRN IV FLUSH FLUSH AFTER USING IV ACCESS ; Start 01/19/17 at 08:45; Stop 01/19/17 at 08:45; Status DC Sodium Chloride (NS Flush) 2 ml BID IV FLUSH ; Start 01/19/17 at 09:00; Stop at 09:00; Status DC Acetaminophen (Tylenol) 650 mg Q4H PRN PO TEMP > 100.4; Start 01/19/17 at 08:45 ; Stop 01/19/17 at 12:00; Status DC Prochlorperazine (Compazine Supp) 25 mg Q12H PRN RECTAL NAUSEA OR VOMITING; Start 01/19/17 at 08:45; Stop 01/19/17 at 12:00; Status DC Acetaminophen (Tylenol) 650 mg Q6H PRN PO PAIN SCALE 1 TO 2; Start 01/19/17 at 08:45; Stop 01/19/17 at 12:00; Status DC Oxycodone/ Acetaminophen (Percocet 5-325 Mg) 1 tab Q6H PRN PO PAIN SCALE 3 TO 5; Start 01/19/17 at 08:45; Stop 01/19/17 at 12:00; Status DC Oxycodone/ Acetaminophen (Percocet 10-325 Mg) 1 tab Q6H PRN PO PAIN SCALE 6 TO 10; Start 01/19/17 at 08:45; Stop 01/19/17 at 12:00; Status DC Morphine Sulfate (Morphine Inj) 2 mg Q3H PRN IV PUSH Pain 3-5; if unable to take PO; Start 01/19/17 at 08:45; Stop 01/19/17 at 12:06; Status DC Morphine Sulfate (Morphine Inj) 4 mg Q3H PRN IV PUSH Pain 6-10;if unable to take PO Last administered on 01/19/17 10:52; Start 01/19/17 at 08:45; Stop 01/19/17 at 12:06; Status DC Naloxone HCl (Narcan Inj) 0.4 mg UNSCH PRN IV PUSH SEE LABEL COMMENTS; Start 01/19/17 at 08:45; Stop 01/19/17 at 12:06; Status DC Senna/Docusate Sodium (Vandana-Colace) 1 tab BID PO Last administered on 10:51; Start 01/19/17 at 09:00; Stop 01/19/17 at 12:08; Status DC Magnesium Hydroxide (Milk Of Magnesia Liq) 30 ml Q12H PRN PO Mild constipation ; Start 01/19/17 at 08:45; Stop 01/19/17 at 12:06; Status DC Sennosides (Senokot) 17.2 mg Q12H PRN PO Moderate constipation; Start 01/19/17 at 08:45; Stop 01/19/17 at 12:08; Status DC Bisacodyl (Dulcolax Supp) 10 mg DAILY PRN RECTAL SEVERE CONSITIPATION; Start 01/19/17 at 08:45; Stop 01/19/17 at 12:06; Status DC Lactulose (Lactulose Liq) 30 ml DAILY PRN PO SEVERE CONSITIPATION; Start at 08:45; Stop 01/19/17 at 12:06; Status DC Sodium Chloride (NS Flush) 2 ml UNSCH PRN IV FLUSH FLUSH AFTER USING IV ACCESS ; Start 01/19/17 at 11:45 Sodium Chloride (NS Flush) 2 ml BID IV FLUSH ; Start 01/19/17 at 21:00 Acetaminophen (Tylenol) 650 mg Q4H PRN PO TEMP > 100.4; Start 01/19/17 at 11:45 Ondansetron HCl (Zofran Inj) 4 mg Q6H PRN IVP NAUSEA OR VOMITING Last administered on 01/21/17 15:34; Start 01/19/17 at 11:45 Prochlorperazine (Compazine Supp) 25 mg Q12H PRN RECTAL NAUSEA OR VOMITING Last administered on 01/21/17 18:24; Start 01/19/17 at 11:45 Acetaminophen (Tylenol) 650 mg Q6H PRN PO PAIN SCALE 1 TO 2; Start 01/19/17 at 11:45 Oxycodone/ Acetaminophen (Percocet 5-325 Mg) 1 tab Q6H PRN PO PAIN SCALE 3 TO 5; Start 01/19/17 at 11:45 Oxycodone/ Acetaminophen (Percocet 10-325 Mg) 1 tab Q6H PRN PO PAIN SCALE 6 TO 10 Last administered on 01/21/17 14:44; Start 01/19/17 at 11:45 Morphine Sulfate (Morphine Inj) 2 mg Q3H PRN IV PUSH Pain 3-5; if unable to take PO; Start 01/19/17 at 11:45 Morphine Sulfate (Morphine Inj) 4 mg Q3H PRN IV PUSH Pain 6-10;if unable to take PO Last administered on 01/20/17 04:38; Start 01/19/17 at 11:45 Naloxone HCl (Narcan Inj) 0.4 mg UNSCH PRN IV PUSH SEE LABEL COMMENTS; Start 01/19/17 at 11:45 Senna/Docusate Sodium (Vandana-Colace) 1 tab BID PO Last administered on 08:53; Start 01/19/17 at 21:00 Magnesium Hydroxide (Milk Of Magnesia Liq) 30 ml Q12H PRN PO Mild constipation ; Start 01/19/17 at 11:45 Sennosides (Senokot) 17.2 mg Q12H PRN PO Moderate constipation Last administered on 01/21/17 19:35; Start 01/19/17 at 11:45 Bisacodyl (Dulcolax Supp) 10 mg DAILY PRN RECTAL SEVERE CONSITIPATION; Start 01/19/17 at 11:45 Lactulose (Lactulose Liq) 30 ml DAILY PRN PO SEVERE CONSITIPATION; Start at 11:45 Pantoprazole Sodium (Protonix Inj) 40 mg Q24H IV PUSH Last administered on 01/21 16:48; Start 01/19/17 at 17:00 Potassium Chloride/Dextrose/ Sod Cl 1,000 ml @ 75 mls/hr [id number] IV Last administered on 11/9/17at 08:55; Start 01/20/17 at 10:52 Propofol 50 ml @ As Directed STK-MED ONCE .ROUTE ; Start 01/21/17 at 13:24; Stop 01/21/17 at 13:25; Status DC Propofol (Diprivan 200 Mg/20 ml Inj) 400 mg STK-MED ONCE .ROUTE ; Start at 13:24; Stop 01/21/17 at 13:25; Status DC A/P Assessment and Plan 27-year-old female presents with 2 days of nausea/vomiting and abdominal pain with transaminitis and elevated total bilirubin. 1. Abdominal pain/transaminitis/elevated T bili/nausea and vomiting FEN NS at 100 cc/hour CLEAR LIQUIDS Electrolytes within normal limits SCDs Recent section 6 weeks ago with local wound infection resolved MRCP HAS BEEN DONE- RESULTS REVIEWED PANCREATITIS WITH ELEVATED LIPASE LESS ABDOMINAL PAIN A.m. labs Discussed with patient and RN and GI AND CM HAD ERCP WITH GI ON 01-21 LAP CADE ON 01-23 DW RN AND PT AND SURGERY AND CM Discharge Planning NEEDS SURGERY TOMORROW Kolton Clemens DO Jan 22, 2017 13:08
--- NOTE | 2017-01-22 15:14 | HHI.GIFU ---
Subjective Remarks Resting in bed. States her pain is much improved today. Only mild RUQ tenderness on exam. Tolerating liquid diet. Plan is for lap. cholecystectomy tomorrow. (Nilam Diego) Objective Vitals I&O Vital Signs Date Time Temp Pulse Resp B/P (MAP) Pulse Ox O2 Delivery O2 Flow Rate FiO2 01/22/17 12:00 98.3 60 18 135/73 (93) 99 01/22/17 08:00 98.0 47 16 136/69 (91) 97 01/22/17 00:00 98.0 54 18 134/74 (94) 97 01/21/17 20:00 97.7 50 18 120/70 (87) 99 01/21/17 16:00 97.3 46 16 135/81 (99) 98 I/O 01/21/17 01/21/17 01/21/17 01/22/17 01/22/17 01/22/17 07:00 15:00 23:00 07:00 15:00 23:00 Intake Total 600 ml 120 ml 1093 ml Balance 600 ml 120 ml 1093 ml Intake Oral 120 ml IV Total 100 ml 1093 ml Other 500 ml # Voids 3 # Bowel Movements 0 Laboratory Laboratory Tests Test 01/22/17 07:18 White Blood Count 6.3 Red Blood Count 4.20 Hemoglobin 11.3 Hematocrit 35.0 Mean Corpuscular Volume 83.1 Mean Corpuscular Hemoglobin 27.0 Mean Corpuscular Hemoglobin Concent 32.5 Red Cell Distribution Width 16.9 Platelet Count 253 Mean Platelet Volume 8.4 Neutrophils (%) (Auto) 61.5 Lymphocytes (%) (Auto) 27.8 Monocytes (%) (Auto) 8.7 Eosinophils (%) (Auto) 1.8 Basophils (%) (Auto) 0.2 Neutrophils # (Auto) 3.9 Lymphocytes # (Auto) 1.7 Monocytes # (Auto) 0.5 Eosinophils # (Auto) 0.1 Basophils # (Auto) 0.0 CBC Comment DIFF FINAL Differential Comment Prothrombin Time 10.6 Prothromb Time International Ratio 1.0 Blood Urea Nitrogen 5 Creatinine 0.80 Random Glucose 89 Total Protein 7.2 Albumin 2.8 Calcium Level 8.5 Phosphorus Level 2.9 Magnesium Level 2.0 Alkaline Phosphatase 261 Aspartate Amino Transf (AST/SGOT) 20 Alanine Aminotransferase (ALT/SGPT) 112 Total Bilirubin 1.3 Sodium Level 139 Potassium Level 4.5 Chloride Level 106 Carbon Dioxide Level 26.9 Anion Gap 6 Estimat Glomerular Filtration Rate 87 Amylase Level 153 Lipase 870 Imaging Last Impressions GI Procedure 01/21/17 0000 Signed Impressions: Service Date/Time: Saturday, January 21, 2017 13:52 - CONCLUSION: ERCP as above. Kolton Marquez MD FACR Cholangiopancreatography MRI 01/19/17 0000 Signed Impressions: Service Date/Time: Thursday, January 19, 2017 13:37 - CONCLUSION: Tiny stones in the benign appearing gallbladder. Normal common duct. Given the size of the stones we could be missing a tiny common duct stone on this exam. Kolton Marquez MD FACR Abdomen Ultrasound 01/19/17 0000 Signed Impressions: Service Date/Time: Thursday, January 19, 2017 09:08 - CONCLUSION: 8 mm common bile duct Probable gallstones. MRCP or HIDA scan may be of benefit. Kolton Marquez MD FACR Physical Exam HEENT: Normocephalic; atraumatic; no jaundice. CHEST: Resp even/unlabored. CARDIAC: RRR ABDOMEN: Soft, nondistended, mild RUQ tenderness; no hepatosplenomegaly; bowel sounds are present in all four quadrants. EXTREMITIES: No clubbing, cyanosis, or edema. SKIN: Normal; no rash; no jaundice. [employer]: No focal deficits; alert and oriented times three. (Nilam Diego [facility]) Assessment and Plan Plan ASSESSMENT: - GS Pancreatitis with RUQ pain, cholelithiasis, elevated lfts. US (01/19/17)--- > 8 mm common bile duct. Probable gallstones. MRCP or HIDA scan may be of benefit. MRCP (01/19/17)---> Tiny stones in the benign appearing gallbladder. Normal common duct. Given the size of the stones, we could be missing a tiny common duct stone on this exam. Continues to have right scapula pain and now with more RUQ tenderness, elevated LFTs, and lipase increased to 2077 on 01/21. S/P ERCP with sphincterotomy (01/21/17)----> 1. Normal appearing ampulla 2. The biliary tree appeared normal with no evidence of stricture, CBD around 7 mm in diameter, balloon ductal sweep negative for stones, debris or sludge. LFTs, lipase, and pain much improved today. T. Bili 1.3, AST 20, ALT 112, ALk phosph 261, lipase 870. GS following, plan is for lap. cholecystectomy tomorrow. - Elevated LFTs, obstructive pattern. S/P ERCP as above. Much improved. PLAN: - Liquid diet - NPO after MN - LFT, Lipase in am - Plan is for lap cholecystectomy on 01/23 with GS - Supportive care - Further recommendations to follow based on results of above - PT seen and examined by Dr. Hooks and myself and this note is written on his behalf (Nilam Diego) Physician Comments Plan as above, will sign off for now, please notify us if needed. (Eloy Hooks MD) Nilam Diego Jan 22, 2017 15:14 Eloy Hooks MD Jan 22, 2017 16:56
[2017-01-22 16:00] VITALS: BP 116/56; PULSE 52; RESP 16; TEMP 97.8; O2SAT 98
[2017-01-22] MEDS: PANTOPRAZOLE SODIUM 40 MG VIAL IV PUSH SCH (16:21)
[2017-01-22 20:00] VITALS: BP 115/81; PULSE 60; RESP 18; TEMP 98.7; O2SAT 97
[2017-01-23 00:36] VITALS: BP 122/60; PULSE 50; RESP 18; TEMP 97.1; O2SAT 95
[2017-01-23] MEDS ORDERED: SODIUM CHLORID 0.9% 500 ML IV PRN (00:45)
[2017-01-23] MEDS ORDERED: LACTATED RINGER'S 1000 ML IV PRN (00:45)
[2017-01-23] MEDS: PIPERACIL-TAZO 4.5 GM PREMIX 100 ML IV SCH ×2 (02:49→08:19)
[2017-01-23] MEDS: D5-1/2 NS + KCL 20 MEQ INJ 1,000 ML IV SCH (02:49)
[2017-01-23 07:00] VITALS: BP 116/89; PULSE 68; RESP 16; TEMP 98.2; O2SAT 98
[2017-01-23] MEDS ORDERED: BUPIVACAINE/EPINEPHRINE 0.25% 50 ML VIAL ONE (07:04)
[2017-01-23] MEDS ORDERED: OXYC1TAB63 PO (08:54)
--- NOTE | 2017-01-23 08:59 | PD.OP ---
cc: Marc Gibbs MD Operative Report Date of Surgery: Jan 23, 2017 Preoperative Diagnosis: (1) Gallstones (2) Gallstone pancreatitis Postoperative Diagnosis: (1) Gallstone pancreatitis (2) Gallstones Procedure: Laparoscopic cholecystectomy Anesthesia: GETA Surgeon: Marc Gibbs [employer] Sales Attendant(s): Carmen VILLAR Operation and Findings: Complications: None apparent EBL: 10 cc Operative findings: The gallbladder did not appear acutely inflamed Procedure in detail: The patient was taken to the operating room and placed in the supine position. General endotracheal anesthesia was induced. The abdomen was prepped and draped in usual sterile fashion and a surgical timeout was performed to verify correct patient procedure and site. Appropriate perioperative antibiotics were administered. Local anesthetic was injected in the skin and subcutaneous tissue superior to the umbilicus and a 5 mm incision performed. The abdomen was entered using the Optiview 5 mm trocar with direct laparoscopic visualization. The abdomen was then insufflated to 15 mmHg with CO2 gas which the patient tolerated well. Next a 12 mm port was placed in the epigastrium and two 5 mm ports in the right upper quadrant and right lateral abdomen. The patient was placed in reverse Trendelenburg position and turned slightly to the left. Attention was turned to the right upper quadrant and the dome of the gallbladder was grasped and retracted cephalad. The infundibulum was retracted laterally to expose Calot's triangle. The Harmonic scalpel was used to expose the cystic duct and the cystic artery directly entering the gallbladder. The cystic artery was divided with the Harmonic scalpel. Two clips were placed proximally on the cystic duct and one distally and it was transected. The gallbladder was then removed from the liver bed using the Harmonic scalpel. Hemostasis was achieved. The gallbladder was then removed from the abdomen using an Endo Catch bag. The clips were in place on the cystic duct and cystic artery stumps with no bleeding or bile leakage. At this point, the abdomen was allowed to desufflate and trochars were removed. The fascia at the 12 mm port site was closed with 0 Vicryl suture. Skin was closed with subcuticular 4-0 Monocryl as well as Dermabond. The patient tolerated the procedure well and was extubated and taken to PACU in stable condition. All sponge and instrument counts were correct. Marc Gibbs MD Jan 23, 2017 08:59
[2017-01-23] MEDS: DOCUSATE SODIUM 50 MG/SENNA 8.6 MG TAB PO SCH (09:00)
[2017-01-23] MEDS ORDERED: DO NOT ADM ANY ANTICOAGULANT DRUGS PRN (09:11)
[2017-01-23] MEDS ORDERED: *morphine SULFATE 8 MG/ML PERIprocedure ONLY ONE (09:22)
[2017-01-23] MEDS: SODIUM CHLORIDE 0.9% FLUSH 10 ML FLUSH IV FLUSH SCH (10:08)
[2017-01-23 10:25] VITALS: BP 153/89; PULSE 50; RESP 15; TEMP 97.1; O2SAT 95
--- NOTE | 2017-01-23 11:00 | HHI.PR ---
Subjective Remarks 27-year-old female presents to the emergency department with a 2 day history of severe epigastric abdominal pain that radiates to her shoulder and nausea/ vomiting. The patient reports she was in her usual state of health when 2 days ago she started to have right upper quadrant pain that was worse with inspiration. She reports the pain intensified to the point where she felt it necessary to be evaluated in the ED. The patient is also concerned because she has not been able to keep anything down. She reports throwing up everything that she takes nothing by mouth. She denies fever/chills. Patient's lab work was significant for transaminitis with elevated alkaline phosphatase and a total bilirubin of 2.8. She does not have leukocytosis. CT of the abdomen/ pelvis showed no acute disease. 01-19 SEEN BY GI MRCP ORDERED DW PATIENT AND RN AND FAMILY RECENT WITH LOCAL WOUND INFECTION 01-20 STILL HAVING ABDOMINAL PAIN LFTS ARE TRENDING DOWN DW RN AND PT AND CM AM LABS CLEAR LIQUIDS IF OK WITH GI 01-21 SEEN BY SURGERY THEY WANT AN ERCP GI IS DISCUSSING WITH HER ALSO WILL NEED CHOLECYSTECTOMY STILL HAVING ABDOMINAL PAIN GOING FOR ERCP TODAY 01-22 HAD ERCP AND SPHINCTEROTOMY ON 01-21 FOR SURGERY ON 01-23 DW RN AND PT AND SURGERY 01-23 had LAP CADE TODAY STILL NOT COMFORTABLE PROBABLE DC TO HOME TOMORROW AM LABS Objective Vitals Vital Signs Date Time Temp Pulse Resp B/P (MAP) Pulse Ox O2 Delivery O2 Flow Rate FiO2 01/23/17 10:25 97.1 50 15 153/89 (110) 95 01/23/17 09:45 98.1 56 17 151/85 (107) 99 Room Air 01/23/17 09:30 62 16 151/87 (108) 99 Room Air 01/23/17 09:15 79 16 147/88 (107) 99 Room Air 01/23/17 09:10 98.1 81 16 144/91 (108) 100 Simple Mask 6 01/23/17 07:00 98.2 68 16 116/89 (98) 98 01/23/17 00:36 97.1 50 18 122/60 (80) 95 01/22/17 20:00 98.7 60 18 115/81 (92) 97 01/22/17 16:00 97.8 52 16 116/56 (76) 98 01/22/17 12:00 98.3 60 18 135/73 (93) 99 I/O 01/22/17 01/22/17 01/22/17 01/23/17 01/23/17 01/23/17 07:00 15:00 23:00 07:00 15:00 23:00 Intake Total 1093 ml 820 ml 1200 ml 800 ml Output Total 10 ml Balance 1093 ml 820 ml 1200 ml 790 ml Intake Oral 720 ml IV Total 1093 ml 100 ml 1200 ml Other 800 ml Output Estimated Blood Loss 10 ml # Voids 3 2 # Bowel Movements 2 Result Diagram: 01/22/1718 01/22/1718 Other Results Laboratory Tests Test 01/21/17 08:20 01/22/17 07:18 White Blood Count 6.6 TH/MM3 6.3 TH/MM3 Red Blood Count 4.30 MIL/MM3 4.20 MIL/MM3 Hemoglobin 11.8 GM/DL 11.3 GM/DL Hematocrit 35.5 % 35.0 % Mean Corpuscular Volume 82.5 FL 83.1 FL Mean Corpuscular Hemoglobin 27.5 PG 27.0 PG Mean Corpuscular Hemoglobin Concent 33.3 % 32.5 % Red Cell Distribution Width 17.2 % 16.9 % Platelet Count 254 TH/MM3 253 TH/MM3 Mean Platelet Volume 8.4 FL 8.4 FL Neutrophils (%) (Auto) 66.6 % 61.5 % Lymphocytes (%) (Auto) 23.8 % 27.8 % Monocytes (%) (Auto) 7.9 % 8.7 % Eosinophils (%) (Auto) 1.4 % 1.8 % Basophils (%) (Auto) 0.3 % 0.2 % Neutrophils # (Auto) 4.4 TH/MM3 3.9 TH/MM3 Lymphocytes # (Auto) 1.6 TH/MM3 1.7 TH/MM3 Monocytes # (Auto) 0.5 TH/MM3 0.5 TH/MM3 Eosinophils # (Auto) 0.1 TH/MM3 0.1 TH/MM3 Basophils # (Auto) 0.0 TH/MM3 0.0 TH/MM3 CBC Comment DIFF FINAL DIFF FINAL Differential Comment Prothrombin Time 10.6 SEC 10.6 SEC Prothromb Time International Ratio 1.0 RATIO 1.0 RATIO Blood Urea Nitrogen 7 MG/DL 5 MG/DL Creatinine 0.79 MG/DL 0.80 MG/DL Random Glucose 86 MG/DL 89 MG/DL Total Protein 7.2 GM/DL 7.2 GM/DL Albumin 2.9 GM/DL 2.8 GM/DL Calcium Level 8.3 MG/DL 8.5 MG/DL Phosphorus Level 2.3 MG/DL 2.9 MG/DL Magnesium Level 1.9 MG/DL 2.0 MG/DL Alkaline Phosphatase 300 U/L 261 U/L Aspartate Amino Transf (AST/SGOT) 53 U/L 20 U/L Alanine Aminotransferase (ALT/SGPT) 156 U/L 112 U/L Total Bilirubin 4.0 MG/DL 1.3 MG/DL Sodium Level 138 MEQ/L 139 MEQ/L Potassium Level 3.8 MEQ/L 4.5 MEQ/L Chloride Level 106 MEQ/L 106 MEQ/L Carbon Dioxide Level 20.9 MEQ/L 26.9 MEQ/L Anion Gap 11 MEQ/L 6 MEQ/L Estimat Glomerular Filtration Rate 88 ML/MIN 87 ML/MIN Gamma Glutamyl Transpeptidase 278 U/L Amylase Level 336 U/L 153 U/L Lipase 2077 U/L 870 U/L Hepatitis A IgM Antibody NEGATIVE Hepatitis B Surface Antigen NEGATIVE Hepatitis C Antibody NEGATIVE Imaging Last Impressions GI Procedure 01/21/17 0000 Signed Impressions: Service Date/Time: Saturday, January 21, 2017 13:52 - CONCLUSION: ERCP as above. Kolton Marquez MD FACR Cholangiopancreatography MRI 01/19/17 0000 Signed Impressions: Service Date/Time: Thursday, January 19, 2017 13:37 - CONCLUSION: Tiny stones in the benign appearing gallbladder. Normal common duct. Given the size of the stones we could be missing a tiny common duct stone on this exam. Kolton Marquez MD FACR Abdomen Ultrasound 01/19/17 0000 Signed Impressions: Service Date/Time: Thursday, January 19, 2017 09:08 - CONCLUSION: 8 mm common bile duct Probable gallstones. MRCP or HIDA scan may be of benefit. Kolton Marquez MD FACR Objective Remarks GENERAL: Awake alert oriented talkative and cooperative SKIN: Warm and dry. HEAD: Atraumatic. Normocephalic. EYES: Pupils equal and round. No scleral icterus. No injection or drainage. Extraocular muscles intact ENT: No nasal bleeding or discharge. Mucous membranes pink and moist. Tongue is midline NECK: Trachea midline. No JVD. Neck is supple CARDIOVASCULAR: Regular rate and rhythm. S1 and S2 no S3 or S4 no heave or thrill or rub or gallop RESPIRATORY: No accessory muscle use. Clear to auscultation. Breath sounds equal bilaterally. GASTROINTESTINAL: Abdomen soft, SOME TENDERNESS, nondistended. Hepatic and splenic margins not palpable. Obese MUSCULOSKELETAL: Extremities without clubbing, cyanosis, or edema. No obvious deformities. NEUROLOGICAL: Awake and alert. No obvious cranial nerve deficits. Motor grossly within normal limits. Five out of 5 muscle strength in the arms and legs. Normal speech. PSYCHIATRIC: Appropriate mood and affect; insight and judgment normal. Procedures ERCP AND SPHINCTEROTOMY ON 01-21 LAP CADE Medications and IVs Current Medications Sodium Chloride 1,000 ml @ 100 mls/hr Q10H IV Last administered on 01/20/17 04:14; Start 01/18/17 at 22:14; Stop 01/20/17 at 09:53; Status DC Sodium Chloride (NS Flush) 2 ml UNSCH PRN IV FLUSH FLUSH AFTER USING IV ACCESS ; Start 01/18/17 at 22:15; Stop 01/19/17 at 12:00; Status DC Sodium Chloride (NS Flush) 2 ml BID IV FLUSH ; Start 01/19/17 at 09:00; Stop at 12:00; Status DC Ondansetron HCl (Zofran Inj) 4 mg Q6H PRN IVP NAUSEA OR VOMITING; Start at 22:15; Stop 01/19/17 at 12:00; Status DC Naloxone HCl (Narcan Inj) 0.4 mg UNSCH PRN IV PUSH SEE LABEL COMMENTS; Start 01/18/17 at 22:15; Stop 01/19/17 at 08:41; Status DC Piperacillin Sod/ Tazobactam Sod 50 ml @ 100 mls/hr Q6H IV ; Start 01/19/17 at 03:00; Stop 01/19/17 at 03:00; Status DC Morphine Sulfate (Morphine Inj) 2 mg Q3H PRN IV PUSH pain > 4 Last administered on 01/19/17 07:25; Start 01/19/17 at 00:45; Stop 01/19/17 at 08:41 ; Status DC Piperacillin Sod/ Tazobactam Sod 100 ml @ 200 mls/hr Q6H IV Last administered on 01/23/17 08:19; Start 01/19/17 at 10:00; Stop 01/23/17 at 08:53; Status DC Sodium Chloride (NS Flush) 2 ml UNSCH PRN IV FLUSH FLUSH AFTER USING IV ACCESS ; Start 01/19/17 at 08:45; Stop 01/19/17 at 08:45; Status DC Sodium Chloride (NS Flush) 2 ml BID IV FLUSH ; Start 01/19/17 at 09:00; Stop at 09:00; Status DC Acetaminophen (Tylenol) 650 mg Q4H PRN PO TEMP > 100.4; Start 01/19/17 at 08:45 ; Stop 01/19/17 at 12:00; Status DC Prochlorperazine (Compazine Supp) 25 mg Q12H PRN RECTAL NAUSEA OR VOMITING; Start 01/19/17 at 08:45; Stop 01/19/17 at 12:00; Status DC Acetaminophen (Tylenol) 650 mg Q6H PRN PO PAIN SCALE 1 TO 2; Start 01/19/17 at 08:45; Stop 01/19/17 at 12:00; Status DC Oxycodone/ Acetaminophen (Percocet 5-325 Mg) 1 tab Q6H PRN PO PAIN SCALE 3 TO 5; Start 01/19/17 at 08:45; Stop 01/19/17 at 12:00; Status DC Oxycodone/ Acetaminophen (Percocet 10-325 Mg) 1 tab Q6H PRN PO PAIN SCALE 6 TO 10; Start 01/19/17 at 08:45; Stop 01/19/17 at 12:00; Status DC Morphine Sulfate (Morphine Inj) 2 mg Q3H PRN IV PUSH Pain 3-5; if unable to take PO; Start 01/19/17 at 08:45; Stop 01/19/17 at 12:06; Status DC Morphine Sulfate (Morphine Inj) 4 mg Q3H PRN IV PUSH Pain 6-10;if unable to take PO Last administered on 01/19/17t 10:52; Start 01/19/17 at 08:45; Stop 01/19/17 at 12:06; Status DC Naloxone HCl (Narcan Inj) 0.4 mg UNSCH PRN IV PUSH SEE LABEL COMMENTS; Start 01/19/17 at 08:45; Stop 01/19/17 at 12:06; Status DC Senna/Docusate Sodium (Vandana-Colace) 1 tab BID PO Last administered on 10:51; Start 01/19/17 at 09:00; Stop 01/19/17 at 12:08; Status DC Magnesium Hydroxide (Milk Of Magnesia Liq) 30 ml Q12H PRN PO Mild constipation ; Start 01/19/17 at 08:45; Stop 01/19/17 at 12:06; Status DC Sennosides (Senokot) 17.2 mg Q12H PRN PO Moderate constipation; Start 01/19/17 at 08:45; Stop 01/19/17 at 12:08; Status DC Bisacodyl (Dulcolax Supp) 10 mg DAILY PRN RECTAL SEVERE CONSITIPATION; Start 01/19/17 at 08:45; Stop 01/19/17 at 12:06; Status DC Lactulose (Lactulose Liq) 30 ml DAILY PRN PO SEVERE CONSITIPATION; Start at 08:45; Stop 01/19/17 at 12:06; Status DC Sodium Chloride (NS Flush) 2 ml UNSCH PRN IV FLUSH FLUSH AFTER USING IV ACCESS ; Start 01/19/17 at 11:45 Sodium Chloride (NS Flush) 2 ml BID IV FLUSH Last administered on 01/23/17 10 :08; Start 01/19/17 at 21:00 Acetaminophen (Tylenol) 650 mg Q4H PRN PO TEMP > 100.4; Start 01/19/17 at 11:45 Ondansetron HCl (Zofran Inj) 4 mg Q6H PRN IVP NAUSEA OR VOMITING Last administered on 01/21/17 15:34; Start 01/19/17 at 11:45 Prochlorperazine (Compazine Supp) 25 mg Q12H PRN RECTAL NAUSEA OR VOMITING Last administered on 01/21/17 18:24; Start 01/19/17 at 11:45 Acetaminophen (Tylenol) 650 mg Q6H PRN PO PAIN SCALE 1 TO 2; Start 01/19/17 at 11:45 Oxycodone/ Acetaminophen (Percocet 5-325 Mg) 1 tab Q6H PRN PO PAIN SCALE 3 TO 5; Start 01/19/17 at 11:45 Oxycodone/ Acetaminophen (Percocet 10-325 Mg) 1 tab Q6H PRN PO PAIN SCALE 6 TO 10 Last administered on 01/21/17 14:44; Start 01/19/17 at 11:45 Morphine Sulfate (Morphine Inj) 2 mg Q3H PRN IV PUSH Pain 3-5; if unable to take PO; Start 01/19/17 at 11:45 Morphine Sulfate (Morphine Inj) 4 mg Q3H PRN IV PUSH Pain 6-10;if unable to take PO Last administered on 01/20/17 04:38; Start 01/19/17 at 11:45 Naloxone HCl (Narcan Inj) 0.4 mg UNSCH PRN IV PUSH SEE LABEL COMMENTS; Start 01/19/17 at 11:45 Senna/Docusate Sodium (Vandana-Colace) 1 tab BID PO Last administered on 19:59; Start 01/19/17 at 21:00 Magnesium Hydroxide (Milk Of Magnesia Liq) 30 ml Q12H PRN PO Mild constipation ; Start 01/19/17 at 11:45 Sennosides (Senokot) 17.2 mg Q12H PRN PO Moderate constipation Last administered on 01/21/17 19:35; Start 01/19/17 at 11:45 Bisacodyl (Dulcolax Supp) 10 mg DAILY PRN RECTAL SEVERE CONSITIPATION; Start 01/19/17 at 11:45 Lactulose (Lactulose Liq) 30 ml DAILY PRN PO SEVERE CONSITIPATION; Start at 11:45 Pantoprazole Sodium (Protonix Inj) 40 mg Q24H IV PUSH Last administered on 01/22 16:21; Start 01/19/17 at 17:00 Potassium Chloride/Dextrose/ Sod Cl 1,000 ml @ 75 mls/hr [id number] IV Last administered on 01/23/17 02:49; Start 01/20/17 at 10:52 Propofol 50 ml @ As Directed STK-MED ONCE .ROUTE ; Start 01/21/17 at 13:24; Stop 01/21/17 at 13:25; Status DC Propofol (Diprivan 200 Mg/20 ml Inj) 400 mg STK-MED ONCE .ROUTE ; Start at 13:24; Stop 01/21/17 at 13:25; Status DC Lactated Ringer's 1,000 ml @ 30 mls/hr Q24H PRN IV SEE LABEL COMMENTS; Start 01/23/17 at 00:45; Stop 01/26/17 at 00:44 Sodium Chloride 500 ml @ 30 mls/hr [id number] PRN IV SEE LABEL COMMENTS; Start at 00:45; Stop 01/26/17 at 00:44 Bupivacaine HCl/ Epinephrine Bitart (Sensorcaine-Epinephrine 0.25% Inj) 50 ml STK-MED ONCE .ROUTE Last administered on 01/23/17 08:20; Start 01/23/17 at 07:04; Stop 01/23/17 at 07:05; Status DC Morphine Sulfate (*morphine INJ PERIprocedure ONLY) 8 mg STK-MED ONCE .ROUTE Last administered on 01/23/17 09:23; Start 01/23/17 at 09:22; Stop 01/23/17 at 09:23; Status DC A/P Assessment and Plan 27-year-old female presents with 2 days of nausea/vomiting and abdominal pain with transaminitis and elevated total bilirubin. 1. Abdominal pain/transaminitis/elevated T bili/nausea and vomiting FEN NS at 100 cc/hour CLEAR LIQUIDS Electrolytes within normal limits SCDs Recent section 6 weeks ago with local wound infection resolved MRCP HAS BEEN DONE- RESULTS REVIEWED PANCREATITIS WITH ELEVATED LIPASE LESS ABDOMINAL PAIN A.m. labs Discussed with patient and RN and GI AND CM HAD ERCP WITH GI ON 01-21 HAD LAP CADE ON 01-23 DW RN AND PT AND SURGERY AND CM DC TO HOME TOMORROW 01-24 Discharge Planning DC TO HOME TOMORROW Kolton Clemens DO Jan 23, 2017 11:00
[2017-01-23 12:01] VITALS: BP_SYST 117; BP_SYST 153; BP_DIAS 84; BP_DIAS 89; PULSE 50; PULSE 55; RESP 17; TEMP 97.1; O2SAT 95; O2SAT 98
[2017-01-23 14:18] LABS: INTERNATIONAL NORMALIZED RATIO 0.9 RATIO; PROTHROMBIN TIME - PATIENT 10.1 SEC (9.8-11.6)
[2017-01-23 14:22] LABS: RED BLOOD COUNT 4.26 MIL/MM3 (4.00-5.30); WHITE BLOOD COUNT 12.8 TH/MM3 (4.0-11.0)
[2017-01-23 14:23] LABS: AUTOMATED NEUTROPHIL # 9.3 TH/MM3 (1.8-7.7); BASOPHIL % 0.2 % (0.0-2.0); EOSINOPHIL # 0.1 TH/MM3 (0-0.4); EOSINOPHIL % 0.6 % (0.0-4.0); HEMATOCRIT 35.1 % (35.0-46.0); LYMPH % 19.5 % (9.0-44.0); LYMPHOCYTE # 2.5 TH/MM3 (1.0-4.8); MEAN CELL VOLUME 82.4 FL (80.0-100.0); MEAN CORPUSCULAR HEMOGLOBIN 26.4 PG (27.0-34.0); MONO % 6.4 % (0.0-8.0); NEUT % 73.3 % (16.0-70.0); PLATELET COUNT 250 TH/MM3 (150-450); RED CELL DISTRIBUTION WIDTH 17.3 % (11.6-17.2)
[2017-01-23 14:45] LABS: HEMO FLAGS AUTO DIFF
[2017-01-23 14:46] LABS: PLATELET ESTIMATE SMEAR NORMAL (NORMAL); PLATELET MORPHOLOGY NORMAL (NORMAL); SCAN/DIFF AUTO DIFF CONFIRMED
--- NOTE | 2017-01-23 15:33 | HHI.DS ---
Discharge Summary Admission Date Jan 19, 2017 at 00:25 Discharge Date: Jan 23, 2017 Admitting Diagnosis ABDOMINAL PAIN (1) Abdominal pain ICD Code: R10.9 - Unspecified abdominal pain Diagnosis: Principal (2) Nausea & vomiting ICD Code: R11.2 - Nausea with vomiting, unspecified Diagnosis: Secondary (3) Gallstones ICD Code: K80.20 - Calculus of gallbladder without cholecystitis without obstruction Diagnosis: Principal (4) Gallstone pancreatitis ICD Code: K85.10 - Biliary acute pancreatitis without necrosis or infection Diagnosis: Principal (5) Cholelithiasis ICD Code: K80.20 - Calculus of gallbladder without cholecystitis without obstruction Diagnosis: Principal Procedures ERCP AND SPHINCTEROTOMY ON 01-21 LAP CADE Brief History - From Admission 27-year-old female presents to the emergency department with a 2 day history of severe epigastric abdominal pain that radiates to her shoulder and nausea/ vomiting. The patient reports she was in her usual state of health when 2 days ago she started to have right upper quadrant pain that was worse with inspiration. She reports the pain intensified to the point where she felt it necessary to be evaluated in the ED. The patient is also concerned because she has not been able to keep anything down. She reports throwing up everything that she takes nothing by mouth. She denies fever/chills. Patient's lab work was significant for transaminitis with elevated alkaline phosphatase and a total bilirubin of 2.8. She does not have leukocytosis. CT of the abdomen/ pelvis showed no acute disease. CBC/BMP: 01/23/17 1325 01/22/17 0718 Significant Findings Laboratory Tests Test 01/21/17 08:20 01/22/17 07:18 01/23/17 13:25 Albumin 2.9 GM/DL (3.4-5.0) 2.8 GM/DL (3.4-5.0) Calcium Level 8.3 MG/DL (8.5-10.1) Phosphorus Level 2.3 MG/DL (2.5-4.9) Alkaline Phosphatase 300 U/L (45-117) 261 U/L (45-117) Aspartate Amino Transf (AST/SGOT) 53 U/L (15-37) Alanine Aminotransferase (ALT/SGPT) 156 U/L (10-53) 112 U/L (10-53) Total Bilirubin 4.0 MG/DL (0.2-1.0) 1.3 MG/DL (0.2-1.0) Carbon Dioxide Level 20.9 MEQ/L (21.0-32.0) Estimat Glomerular Filtration Rate 88 ML/MIN (>89) 87 ML/MIN (>89) Gamma Glutamyl Transpeptidase 278 U/L (5-55) Amylase Level 336 U/L (25-115) 153 U/L (25-115) Lipase 2077 U/L (73-393) 870 U/L (73-393) Hemoglobin 11.3 GM/DL (11.6-15.3) 11.2 GM/DL (11.6-15.3) Monocytes (%) (Auto) 8.7 % (0.0-8.0) Blood Urea Nitrogen 5 MG/DL (7-18) White Blood Count 12.8 TH/MM3 (4.0-11.0) Mean Corpuscular Hemoglobin 26.4 PG (27.0-34.0) Red Cell Distribution Width 17.3 % (11.6-17.2) Neutrophils (%) (Auto) 73.3 % (16.0-70.0) Neutrophils # (Auto) 9.3 TH/MM3 (1.8-7.7) Imaging Last Impressions GI Procedure 01/21/17 0000 Signed Impressions: Service Date/Time: Saturday, January 21, 2017 13:52 - CONCLUSION: ERCP as above. Kolton Marquez MD FACR Cholangiopancreatography MRI 01/19/17 0000 Signed Impressions: Service Date/Time: Thursday, January 19, 2017 13:37 - CONCLUSION: Tiny stones in the benign appearing gallbladder. Normal common duct. Given the size of the stones we could be missing a tiny common duct stone on this exam. Kolton Marquez MD FACR Abdomen Ultrasound 01/19/17 0000 Signed Impressions: Service Date/Time: Thursday, January 19, 2017 09:08 - CONCLUSION: 8 mm common bile duct Probable gallstones. MRCP or HIDA scan may be of benefit. Kolton Marquez MD FACR PE at Discharge GENERAL: Awake alert oriented talkative and cooperative SKIN: Warm and dry. HEAD: Atraumatic. Normocephalic. EYES: Pupils equal and round. No scleral icterus. No injection or drainage. Extraocular muscles intact ENT: No nasal bleeding or discharge. Mucous membranes pink and moist. Tongue is midline NECK: Trachea midline. No JVD. Neck is supple CARDIOVASCULAR: Regular rate and rhythm. S1 and S2 no S3 or S4 no heave or thrill or rub or gallop RESPIRATORY: No accessory muscle use. Clear to auscultation. Breath sounds equal bilaterally. GASTROINTESTINAL: Abdomen soft, SOME TENDERNESS, nondistended. Hepatic and splenic margins not palpable. Obese MUSCULOSKELETAL: Extremities without clubbing, cyanosis, or edema. No obvious deformities. NEUROLOGICAL: Awake and alert. No obvious cranial nerve deficits. Motor grossly within normal limits. Five out of 5 muscle strength in the arms and legs. Normal speech. PSYCHIATRIC: Appropriate mood and affect; insight and judgment normal. Hospital Course 27-year-old female presents to the emergency department with a 2 day history of severe epigastric abdominal pain that radiates to her shoulder and nausea/ vomiting. The patient reports she was in her usual state of health when 2 days ago she started to have right upper quadrant pain that was worse with inspiration. She reports the pain intensified to the point where she felt it necessary to be evaluated in the ED. The patient is also concerned because she has not been able to keep anything down. She reports throwing up everything that she takes nothing by mouth. She denies fever/chills. Patient's lab work was significant for transaminitis with elevated alkaline phosphatase and a total bilirubin of 2.8. She does not have leukocytosis. CT of the abdomen/ pelvis showed no acute disease. 11 SEEN BY GI MRCP ORDERED DW PATIENT AND RN AND FAMILY RECENT WITH LOCAL WOUND INFECTION 01-20 STILL HAVING ABDOMINAL PAIN LFTS ARE TRENDING DOWN DW RN AND PT AND CM AM LABS CLEAR LIQUIDS IF OK WITH GI 01-21 SEEN BY SURGERY THEY WANT AN ERCP GI IS DISCUSSING WITH HER ALSO WILL NEED CHOLECYSTECTOMY STILL HAVING ABDOMINAL PAIN GOING FOR ERCP TODAY - HAD ERCP AND SPHINCTEROTOMY ON 01-21 FOR SURGERY ON 01-23 DW RN AND PT AND SURGERY 01-23 had LAP CADE TODAY NOW COMFORTABLE DC TO HOME TODAY DW RN AND PT AND FAMILY CLEARED BY SURGERY Pt Condition on Discharge: Good Discharge Disposition: Discharge Home Discharge Time: <= 30 minutes Discharge Instructions DIET: Follow Instructions for: Heart Healthy Diet Speech Therapy-Diet Recommends: Regular Activities you can perform: Shower Only-No Bath Follow up Referrals: PCP Follow-up - 1 Week with Mukul Kyle D.o. Surgical - 2 Weeks with Marc Gibbs MD New Medications: Oxycodone HCl/Acetaminophen (Oxycodone-Acetaminophen 5-325) 5 Mg-325 Mg Tablet 1-2 TAB PO Q6H PRN for PAIN, #25 TAB Kolton Clemens DO Jan 23, 2017 15:33
[2017-01-23 16:10] VITALS: BP 126/80; PULSE 58; RESP 17; TEMP 96.9; O2SAT 99
[2017-01-23 16:54] LABS: ALT (GPT) 81 U/L (10-53); AMYLASE 54 U/L (25-115); ANION GAP 8 MEQ/L (5-15); AST (GOT) 27 U/L (15-37); BICARBONATE 24.1 MEQ/L (21.0-32.0); BLOOD UREA NITROGEN 4 MG/DL (7-18); CHLORIDE 106 MEQ/L (98-107); GLOMERULAR FILTRATION RATE 84 ML/MIN (>89); MAGNESIUM 1.9 MG/DL (1.5-2.5); POTASSIUM 4.4 MEQ/L (3.5-5.1); SODIUM (NA) 138 MEQ/L (136-145)
[2017-01-23 16:57] LABS: ALKALINE PHOSPHATASE 197 U/L (45-117); TOTAL BILIRUBIN ADULT 0.8 MG/DL (0.2-1.0)
== END 2017-01-23 17:33 | disposition home or self-care (01) | DRG 417 ==
LOC: NEDDLT 00:22 → N07A 00:25
PROVIDERS: ADMIT Hospitalist; ATTEND Hospitalist
PROC: 0F798ZZ Dilation of Common Bile Duct, Via Natural or Artificial Opening Endoscopic (ICD-10-PCS; 2017-01-21)
PROC: BF141ZZ Fluoroscopy of Gallbladder, Bile Ducts and Pancreatic Ducts using Low Osmolar Contrast (ICD-10-PCS; 2017-01-21)
PROC: 0FT44ZZ Resection of Gallbladder, Percutaneous Endoscopic Approach (ICD-10-PCS; principal; 2017-01-23 07:49)
DX: K80.10 Calculus of gallbladder with chronic cholecystitis without obstruction (principal); K85.10 Biliary acute pancreatitis without necrosis or infection; R74.8 Abnormal levels of other serum enzymes; F12.90 Cannabis use, unspecified, uncomplicated
CPT/HCPCS: 74176; 74181; 74330; 76377; 76700; 80053; 81001; 82150; 82977; 83036; 83690; 83735; 84100; 84439; 84443; 85025; 85610; 86709; 86803; 87086; 87340; 88304; 96374; 96375; C1769; C9113; J1885; J2270; J2405; J2543; J3480; J7030